=== PATIENT | female | born 1960 | race Caucasian/White ===

== ENCOUNTER → 2020-11-17 10:31 | Outpatient (BNVA) | payer MEDICARE, MEDICAID, SELFPAY | PROVIDERS: Family Provider Family Medicine; PCP Family Medicine Adult Medicine; Visit Provider Family Medicine Adult Medicine | DX: J44.9 Chronic obstructive pulmonary disease, unspecified (principal); F41.9 Anxiety disorder, unspecified; F32.9 Major depressive disorder, single episode, unspecified; M81.8 Other osteoporosis without current pathological fracture; E66.9 Obesity, unspecified; M81.0 Age-related osteoporosis without current pathological fracture; K21.9 Gastro-esophageal reflux disease without esophagitis; E87.6 Hypokalemia; M79.7 Fibromyalgia; M54.5 Low back pain; G89.29 Other chronic pain; Z13.6 Encounter for screening for cardiovascular disorders | CPT/HCPCS: 80053; 80061; 83036; 84443; 85025 ==

== ENCOUNTER 2021-01-03 14:12 | Outpatient (CLI) | payer MEDICARE, MEDICAID, SELFPAY ==
--- NOTE | 2021-01-03 14:30 | MM_ITS ---
WS: [email or web address] BILATERAL SCREENING DIGITAL MAMMOGRAM WITH CAD HISTORY: Screening evaluation. COMPARISON: None available. Bilateral CC and MLO views submitted. Computer aided detection analyzed. Breast composition: The breasts are heterogeneously dense, which may obscure small masses. No suspici ous masses, microcalcifications or architectural distortion. MM/[place] [id number] IMPRESSION: BI-RADS: 1-Negative FOLLOW UP: 1 Year Follow-up
== END 2021-01-03 14:13 | disposition home or self-care (01) ==
LOC: RADSHAW 14:15
PROVIDERS: PCP Family Medicine Adult Medicine; Visit Provider Family Medicine Adult Medicine
DX: Z12.31 Encounter for screening mammogram for malignant neoplasm of breast (principal)
CPT/HCPCS: 77067

== ENCOUNTER 2022-02-22 10:39 | Outpatient (CLI) | payer MEDICARE, MEDICAID, SELFPAY ==
--- NOTE | 2022-02-22 10:51 | MM_ITS ---
WS: [email or web address] BILATERAL SCREENING DIGITAL TOMOSYNTHESIS MAMMOGRAM WITH CAD HISTORY: Breast cancer screening. Last screening done 12/2020 COMPARISON: 01/03/2021 and 09/15/2013 Bilateral CC and MLO views with tomosynthesis and synthetic mammography submitted. Computer aided det ection analyzed. Breast composition: The breasts are heterogeneously dense, which may obscure small masses. No suspici ous masses, microcalcifications or architectural distortion. Benign calcifications in each breast. MM/[place] [id number] IMPRESSION: BI-RADS: 2-Benign FOLLOW UP: 1 Year Follow-up
== END 2022-02-22 10:40 | disposition home or self-care (01) ==
LOC: RAD 10:40
PROVIDERS: PCP Family Medicine Adult Medicine; Visit Provider Family Medicine Adult Medicine
DX: Z12.31 Encounter for screening mammogram for malignant neoplasm of breast (principal)
CPT/HCPCS: 77063; 77067

== ENCOUNTER → 2023-10-02 14:00 | Outpatient (BNVA) | payer MEDICARE, MEDICAID, SELFPAY | PROVIDERS: PCP Family Medicine Adult Medicine; Visit Provider Orthopaedic Surgery | DX: M54.50 Low back pain, unspecified (principal); Z98.1 Arthrodesis status; Z79.899 Other long term (current) drug therapy | CPT/HCPCS: 36415; 72110; 80053; 81001; 85025; 99204 ==

== ENCOUNTER → 2023-10-17 13:20 | Outpatient (BNVA) | payer MEDICARE, MEDICAID, SELFPAY | PROVIDERS: PCP Family Medicine Adult Medicine; Visit Provider Family Medicine | DX: Z01.818 Encounter for other preprocedural examination (principal) | CPT/HCPCS: 81003 ==

== ENCOUNTER 2023-11-09 09:48 | Day surgery (SDC) | payer MEDICARE, MEDICAID, SELFPAY ==
[2023-11-09] VITALS (10 sets, daily range): BP systolic 111–147; BP diastolic 50–84; PULSE 66–96; RESP 14–20; TEMP 36.3–37.5; O2SAT 93–100; BMI 30.4
[2023-11-09] MEDS: sodium chloride 0.9% 1,000 ML 30 ML IV (10:43)
--- NOTE | 2023-11-09 10:45 | P.ANESASSM_ITS ---
Pre-Anesthetic Assessment Height/Weight: Height 1.73 m Weight 90.718 kg Temp Pulse Resp BP Pulse Ox O2 Del Method 97.7 F 87 18 129/79 95 Room Air 11/09/23 10:11/09/23 10:11/09/23 10:00 11/09/23 10:00 11/09/23 10:00 11/09/23 10:15 Preop Diagnosis: Lumbar stenosis with neurogenic claudication Operation Date: 11/09/23 11:20 Proposed Procedures p Spinal Cord Battery/Stimulator Removal Removal Of Stimulator Paddle and Generator(Not Applicable) - Meño Coyne, DO Was Beta Lloyd taken within 24 hours: N/A Last intake: Intake Last Liquid Date 11/08/23 Last Liquid Time 23:00 Last Solid Date 11/08/23 Last Solid Time 19:00 Social No alcohol and No tobacco Exam alert, oriented x 3, clear to auscultation bilaterally and regular rate & rhythm Airway Submandibular: within normal limits Cervical ROM: within normal limits Mallampati: Class II Pulmonary Asthma and Chronic Obstructive Pulmonary Disease GI Gastroesophageal Reflux Disease (controlled) Neuropsych Anxiety and Depression Anesthetic Plan ASA status: 2 Anesthesia: General Medications/Allergies Home Medications Medication Instructions Recorded Confirmed Last Taken Type calcium carbonate 500 mg PO DAILY 02/16/21 11/09/23 11/08/23 History loratadine 10 mg tablet 10 mg PO DAILY allergies #30 tabs 02/14/23 11/09/23 11/08/23 Rx naproxen 500 mg tablet 500 mg PO BID hip pain #30 tabs 05/16/23 11/09/23 11/08/23 Rx albuterol sulfate 90 mcg/actuation 2 puff inhalation Q6H PRN 07/29/23 11/09/23 11/07/23 Rx aerosol inhaler shortness of breath or wheezing #8.5 grams Prempro 0.3 mg-1.5 mg tablet (conj 1 tab PO DAILY hot flashes #28 tabs 09/19/23 11/09/23 11/08/23 Rx estrog-medroxyprogest roseann) cholecalciferol (vitamin D3) 250 2,000 unit PO DAILY 09/19/23 11/09/23 11/08/23 History mcg (10,000 unit) capsule biotin 5,000 mcg chewable tablet 5,000 mcg PO DAILY 10/17/23 11/09/23 11/08/23 History cyanocobalamin (vitamin B-12) 2,500 mcg PO DAILY 10/17/23 11/09/23 11/08/23 History 2,500 mcg chewable tablet ferrous sulfate 325 mg (65 mg 325 mg PO DAILY 10/17/23 11/09/23 11/08/23 History iron) tablet (FeroSul) vit B comp-E 30 unit-folic acid 1 tab PO DAILY 10/17/23 11/09/23 11/08/23 History 400 frg-[id number] 80 mg tablet (Menopause Support) vitamin E (dl, acetate) 180 mg 180 mg PO DAILY 10/17/23 11/09/23 11/08/23 History (400 unit) capsule alendronate 10 mg tablet 10 mg PO DAILY 11/08/23 11/09/23 11/08/23 History buspirone 5 mg tablet 5 mg PO BID 11/08/23 11/09/23 11/08/23 History duloxetine 30 mg capsule,delayed 30 mg PO DAILY 11/08/23 11/09/23 11/08/23 History release duloxetine 60 mg capsule,delayed 60 mg PO DAILY 11/08/23 11/09/23 11/08/23 History release montelukast 10 mg tablet 10 mg PO DAILY 11/08/23 11/09/23 11/08/23 History olanzapine 15 mg tablet 15 mg PO DAILY 11/08/23 11/09/23 11/08/23 History omeprazole 20 mg capsule,delayed 20 mg PO DAILY 11/08/23 11/09/23 11/08/23 History release potassium chloride 10 mEq 10 meq PO DAILY 11/08/23 11/09/23 11/08/23 History capsule,extended release tizanidine 4 mg tablet 4 mg PO TID PRN Spasms 11/08/23 11/09/23 11/08/23 History Allergies Allergy/AdvReac Type Severity Reaction Status Date / Time Penicillins Allergy Mild ALGY-Hives Verified 11/09/23 10:05 Current Medications Generic Name Dose Route Start Last Admin Trade Name Freq PRN Reason Stop Dose Admin Sodium Chloride 1,000 mls @ 30 mls/hr 11/09/23 10:00 11/09/23 10:43 Sodium Chloride 0.9% IV 11/10/23 09:59 30 mls/hr .Q24H JOSE Administration PFSH Anesthesia Medical History Spinal cord stimulator dysfunction Hot flash, menopausal Allergic rhinitis due to allergen Skin abnormalities Psoriasis/like disorders Arthritis of left sacroiliac joint Pain around toenail, right foot Enlarged and hypertrophic nails Chronic bronchitis with COPD (chronic obstructive pulmonary disease) Obesity (BMI 30.0-34.9) Anxiety and depression Asthma due to environmental allergies Chronic low back pain Vitamin D deficiency Osteoporosis Hyperlipidemia Fibromyalgia GERD (gastroesophageal reflux disease) Surgical History History of back surgery History of shoulder surgery left History of hysterectomy History of neck surgery History of hand surgery bilateral carpal tunnel Family History Family/Other Diabetes Maternal aunt Denies family history of CAD (coronary artery disease) Clotting disorder Dementia Hyperlipidemia Chronic kidney disease (CKD) Anesthesia complication Bleeding disorder Lung disease Cancer Hypertension Stroke Social History Smoking and tobacco/nicotine status: never used tobacco/nicotine Alcohol intake: former Substance/Drug Use: never Adopted: No Caregiver/support person: No Lives independently: Yes Household members: family Marital status: Number of children: 2 Number of grandchildren: 1 Highest education level completed: 11th Grade service: No Current occupational status: disabled Pets and animals: Yes Pets & animals: dog(s) Do you think of yourself as: Straight/Heterosexual Current gender identity: Female Hodan/Yarsanism: None Special hodan needs: No Data Anesthesia Cardiac Studies: No Data to Display
--- NOTE | 2023-11-09 12:02 | W.PM.OPSUD ---
Surgery/Procedure H&P Update DATE OF PROCEDURE: November 09, 2023 DATE H&P PERFORMED: 10/17/23 H&P UPDATE INFORMATION: I have reviewed H&P completed within last 30 days, I have examined patient prior to procedure and No changes to prior documentation PREOP DIAGNOSIS: Lumbar stenosis with neurogenic claudication PLANNED PROCEDURE: Operation Date: 11/09/23 11:20 Proposed Procedures p Spinal Cord Battery/Stimulator Removal Removal Of Stimulator Paddle and Generator(Not Applicable) - Meño Coyne DO
[2023-11-09] MEDS: clindamycin 900 MG/50 ML PREMIX 100 MG IV (12:11)
[2023-11-09] MEDS: lidocaine-epi 1% 20 mL INJ 10 ML INJECTION (12:31)
[2023-11-09] MEDS: vancomycin 1,000 MG SDV 1000 MG XX (12:51)
--- NOTE | 2023-11-09 13:01 | SUR.OPER ---
1300 battery removed and inspected by dr duarte, removed entirely and placed in biohazard
--- NOTE | 2023-11-09 13:21 | PM.OP ---
Operative Report Date of procedure: November 09, 2023 Pre-op diagnosis: Lumbar stenosis with neurogenic claudication Post-op diagnosis: same Procedure done: 1. Removal of spinal cord stimulator that was percutaneous 2. Removal of battery generator for neurostimulator Surgeon: Meño Coyne DO Estimated blood loss (mL): 5 Procedure: 1. Removal of spinal cord stimulator that was percutaneous 2. Removal of battery generator for neurostimulator Patient brought to the operative suite after going anesthesia placed in the prone position. All his impingement well-padded. Patient's prepped draped also fashion. Skin incision made over the battery first the battery is identified and removed from the battery pocket. Extension was brought to where the stimulator is tight in. Incisions made over the 2 tines for stimulator. These were identified sutures were cut. And the percutaneous leads were pulled from the spine. Next the wires for the battery were cut and then these were pulled through. X-rays then taken to confirm that all of the hardware and wires were taken out. Wounds were irrigated vancomycin powder was placed and wound was closed with Vicryl and Monocryl suture. Sterile dressings were applied patient was transferred to the PACU in stable condition.
--- NOTE | 2023-11-09 13:28 | ANE.PACU2 ---
Inpatient post-anesthesia follow up: Airway intact: Yes Vital signs: Temperature 97.7 F Pulse Rate 87 Respiratory Rate 18 Blood Pressure 129/79 Pulse Oximetry 95 Oxygen Delivery Me thod Room Air Oxygen Flow Rate Fraction of Inspir ed Oxygen Hydration adequate: Yes Nausea and vomiting: No Pain level: controlled Mental status: Baseline (appropriate for stage of anesthesia)
[2023-11-09] MEDS: HYDROcodone-acetaminophen 5-325 mg Tablet 1 TAB PO (14:18)
--- NOTE | 2023-11-09 14:22 | XR_ITS ---
WS: [email or web address] C-ARM RADIOGRAPHS LUMBAR SPINE; 4 IMAGES HISTORY: or pic, spinal stimulator removal COMPARISON: None available. Intraoperative imaging during spinal stimulator removal. On the imaging submitted no stimulator is id entified. XR/XR lumbar spine 1V [id number] IMPRESSION: Intraoperative imaging during spinal stimulator removal.
== END 2023-11-09 14:30 | disposition home or self-care (01) ==
PROVIDERS: PCP Family Medicine Adult Medicine; Visit Provider Orthopaedic Surgery
PROC: (CPT 63661; principal; 2023-11-09 11:10)
DX: M48.062 Spinal stenosis, lumbar region with neurogenic claudication (principal); J44.9 Chronic obstructive pulmonary disease, unspecified; K21.9 Gastro-esophageal reflux disease without esophagitis; E66.9 Obesity, unspecified; Z68.30 Body mass index [BMI] 30.0-30.9, adult; M81.0 Age-related osteoporosis without current pathological fracture; E78.5 Hyperlipidemia, unspecified; M79.7 Fibromyalgia
CPT/HCPCS: 63661; 63688; 72020; 76000; J0330; J1100; J2405; J2704; J2710; J3010; J3370; J3490; J7030

== ENCOUNTER → 2023-11-27 13:45 | Outpatient (BNVA) | payer MEDICARE, MEDICAID, SELFPAY | PROVIDERS: PCP Family Medicine Adult Medicine; Visit Provider Orthopaedic Surgery | DX: G89.29 Other chronic pain; M54.50 Low back pain, unspecified | CPT/HCPCS: 99024 ==

== ENCOUNTER 2023-12-14 09:17 | Outpatient (CLI) | payer MEDICARE, MEDICAID, SELFPAY ==
--- NOTE | 2023-12-14 09:30 | MR_ITS ---
WS: [email or web address] MRI LUMBAR SPINE NONCONTRAST TECHNIQUE: Sagittal T1, T2 and STIR imaging. Axial T1 and T2 imaging. CLINICAL INFORMATION: Back Pain COMPARISON: None. FINDINGS: Prior postoperative changes pedicle screw fixation L5-S1 with laminectomy defects. No high-grade cent ral canal stenosis. Compression with anterior wedging wedging in the thoracic spine at T4 and T6, wor se at T6. L1-L2: Tiny RIGHT paracentral protrusion. Spinal canal and foramen are patent. Mild facet arthropathy . L2-L3: Mild annular bulging. Moderate facet arthropathy. Mild LEFT foraminal narrowing. L3-L4: Slight retrolisthesis. Mild annular bulging. Mild central canal stenosis. Mild facet arthropat hy. L4-L5: Mild annular bulging. Mild facet arthropathy. Spinal canal and foramen are patent. L5-S1: Pedicle screw fixation with interbody fusion graft. Spinal canal and foramen are patent. Steffen ectomy defects. Visualized pelvic bony structures: Normal. Paravertebral soft tissues: Normal. Small LEFT renal cyst. Incidental Tarlov cyst in the sacrum. MR/MR lumbar spine wo con* [id number] IMPRESSION: 1. Mild lumbar curve. No acute compression. 2. Pedicle screw fixation L5-S1.Laminectomy defects in the lower lumbar spine. 3. Mild central canal stenosis L3-4. This is progressed compared to previous. 4. Mild annular bulging L2-3 with slight narrowing LEFT subarticular recess wi th mild LEFT foraminal narrowing. This appears progressed compared to previous. 5. Anterior wedging in the midthoracic spine at T4 and T6 worse at T6 with vis ualized fracture clefts. This could be further evaluated thoracic spine MRI.
== END 2023-12-14 09:18 | disposition home or self-care (01) ==
LOC: RAD 09:18
PROVIDERS: PCP Family Medicine Adult Medicine; Visit Provider Orthopaedic Surgery
DX: S22.040A Wedge compression fracture of fourth thoracic vertebra, initial encounter for closed fracture (principal); X58.XXXA Exposure to other specified factors, initial encounter
CPT/HCPCS: 72148

== ENCOUNTER → 2023-12-18 13:08 | Outpatient (BNVA) | payer MEDICARE, MEDICAID, SELFPAY | PROVIDERS: PCP Family Medicine Adult Medicine; Visit Provider Orthopaedic Surgery | DX: Z09 Encounter for follow-up examination after completed treatment for conditions other than malignant neoplasm (principal) | CPT/HCPCS: 99024 ==

== ENCOUNTER → 2024-01-22 15:42 | Outpatient (BNVA) | payer MEDICARE, MEDICAID, SELFPAY | PROVIDERS: PCP Family Medicine Adult Medicine; Visit Provider Orthopaedic Surgery | DX: G89.29 Other chronic pain (principal); Z48.89 Encounter for other specified surgical aftercare | CPT/HCPCS: 72110; 99024 ==

== ENCOUNTER 2024-03-20 08:59 | Outpatient (CLI) | payer MEDICARE, MEDICAID, SELFPAY ==
--- NOTE | 2024-03-20 09:00 | CT_ITS ---
WS: [email or web address] LDCT LUNG CANCER SCREENING HISTORY: karmen dep in remission; quit 2019; 40pk yr hx TECHNIQUE: Axial imaging performed from the apices to 1 cm below the costophrenic angles. Coronal and sagittal reformats are submitted with axial MIP series. All CT scans at [facility] use at least one of these dose optimization techniques: automated exposure control; mA and/or kV adjustment per patient size (includes targeted exams where dose is matched to clinical indication); or iterativ e reconstruction. DLP: 83.80 mGy.cm DIvol: Mean CTDIvol: 1.90 (mGy) COMPARISON: None available. Diagnostic quality: Satisfactory Lungs: Pulmonary hyperexpansion. 2 mm nodule periphery RIGHT upper lobe. 4 mm LEFT perifissural nodul e. No additional masses or nodules. No pneumonia. No endobronchial lesions. Heart: Normal size heart with no pericardial effusion.. Other findings: Small mediastinal and hilar lymph nodes. Minimal atherosclerosis aorta. Mild anterior wedging of T6 and T4. CT/CT lung screening [id number] IMPRESSION: LUNG-RADS: 2-Benign Appearance or Behavior FOLLOW UP: 12 Month: Continue annual screening with LDCT OTHER FINDINGS (S MODIFIER): None.
== END 2024-03-20 09:00 | disposition home or self-care (01) ==
LOC: RAD 08:59
PROVIDERS: PCP Family Medicine Adult Medicine; Visit Provider Family Medicine
DX: Z12.2 Encounter for screening for malignant neoplasm of respiratory organs (principal); F17.211 Nicotine dependence, cigarettes, in remission; J98.4 Other disorders of lung; R91.8 Other nonspecific abnormal finding of lung field; I70.0 Atherosclerosis of aorta; M48.54XA Collapsed vertebra, not elsewhere classified, thoracic region, initial encounter for fracture; R59.0 Localized enlarged lymph nodes
CPT/HCPCS: 71271

== ENCOUNTER 2024-04-03 11:20 | Outpatient (CLI) | payer MEDICARE, MEDICAID, SELFPAY ==
--- NOTE | 2024-04-03 11:20 | MM_ITS ---
WS: [email or web address] SCREENING DIGITAL BREAST TOMOSYNTHESIS MAMMOGRAM WITH CAD HISTORY: screening COMPARISON: 02/22/2022, 01/03/2021 Bilateral CC and MLO with tomosynthesis and synthetic mammography submitted. Computer aided detection analyzed. Breast composition: The breasts are heterogeneously dense, which may obscure small masses. New high d ensity mass measures 9 x 10 x 9 mm retroareolar region. Margins of the mass are partially obscured. N o calcification. No additional suspicious findings. MM/MM scr BI tomosynthesis [id number] IMPRESSION: BI-RADS: 0 - Incomplete: Need additional imaging evaluation FOLLOW UP: Need Additional Imaging LEFT breast: Spot compression views (CC and MLO). True ML. Ultrasound to follow if abnormality persists. Repeat LEFT MLO image to include more of the axillary tail and axilla.
== END 2024-04-03 11:21 | disposition home or self-care (01) ==
LOC: MOBLMAM 11:22
PROVIDERS: PCP Family Medicine; Visit Provider Family Medicine
DX: Z12.31 Encounter for screening mammogram for malignant neoplasm of breast (principal); R92.333 Mammographic heterogeneous density, bilateral breasts; N63.0 Unspecified lump in unspecified breast; R92.8 Other abnormal and inconclusive findings on diagnostic imaging of breast
CPT/HCPCS: 77063; 77067

== ENCOUNTER 2024-04-18 08:30 | Outpatient (CLI) | payer MEDICARE, MEDICAID, SELFPAY ==
--- NOTE | 2024-04-18 08:43 | MR_ITS ---
WS: [email or web address] MRI LUMBAR SPINE NONCONTRAST TECHNIQUE: Sagittal T1, T2 and STIR imaging. Axial T1 and T2 imaging. CLINICAL INFORMATION: CHRONIC LOW BACK PAIN COMPARISON: MRI 12/14/2023 FINDINGS: Prior postoperative changes pedicle screw fixation L5-S1 with laminectomy defects. No high-grade central canal stenosis. Compression with anterior wedging wedging in the thoracic spine at T4 and T6, worse at T6. Spinal stimulator removal. L1-L2: Slight narrowing of the RIGHT subarticular recess. Slight retrolisthesis. Mild narrowing of the RIGHT subarticular recess. Mild facet arthropathy. Spinal canal and foramen are patent. L2-L3: Slight retrolisthesis. Mild annular bulging. Slight narrowing of the LEFT subarticular recess. Mild LEFT foraminal narrowing. Mild facet arthropathy. L3-L4: Slight retrolisthesis. Mild annular bulging. Mild central canal stenosis. Impingement traversing L4 nerve roots. Mild facet arthropathy. Foramen are patent. L4-L5: Mild annular bulging. Narrowing of the subarticular recess bilaterally appears slightly progressed. Foramen are patent. L5-S1: Pedicle screw fixation L5-S1 with interbody fusion. Spinal canal and foramen are patent. Visualized pelvic bony structures: Normal. Paravertebral soft tissues: Normal. MR/MR lumbar spine wo con* [id number] IMPRESSION: 1. Prior postoperative changes pedicle screw fixation L5-S1 with interbody fus ion. 2. Mild central canal stenosis L3-4 with impingement of the subarticular reces s bilaterally similar to previous. 3. Narrowing of the subarticular recess bilaterally at L4-5 appears slightly p rogressed. 4. Disc bulging L2-3 with slight narrowing the LEFT subarticular recess and mi ld LEFT foraminal narrowing appears stable. 5. Tiny RIGHT paracentral protrusion L1-2 with slight narrowing of the RIGHT s ubarticular recess. 6. Evidence of prior spinal stimulator removal
== END 2024-04-18 08:31 | disposition home or self-care (01) ==
LOC: RAD 08:33
PROVIDERS: PCP Family Medicine; Visit Provider Nurse Practitioner Adult Health
DX: M47.816 Spondylosis without myelopathy or radiculopathy, lumbar region (principal); Z98.1 Arthrodesis status; M48.061 Spinal stenosis, lumbar region without neurogenic claudication; M51.369 Other intervertebral disc degeneration, lumbar region without mention of lumbar back pain or lower extremity pain; M96.89 Other intraoperative and postprocedural complications and disorders of the musculoskeletal system; M48.54XA Collapsed vertebra, not elsewhere classified, thoracic region, initial encounter for fracture; R93.7 Abnormal findings on diagnostic imaging of other parts of musculoskeletal system; M47.896 Other spondylosis, lumbar region
CPT/HCPCS: 72148

== ENCOUNTER 2024-04-21 08:27 | Outpatient (CLI) | payer MEDICARE, MEDICAID, SELFPAY ==
--- NOTE | 2024-04-21 08:30 | MM_ITS ---
WS: [email or web address] ADDITIONAL VIEWS LEFT MAMMOGRAM with tomosynthesis. LEFT BREAST ULTRASOUND HISTORY: left breast mass on mammo COMPARISON: 04/03/2024, 02/22/2022 LEFT MAMMOGRAM: Spot compression views and true ML with tomosynthesis and synthetic mammography. Partially obscured mass of increased density in the lateral LEFT breast near 3:00 measures 9 x 10 x 10 mm. Margins are partially obscured but otherwise smooth. No additional mass. LEFT BREAST ULTRASOUND 2-D and color Doppler imaging submitted. Lobulated cyst with through transmission and no internal echoes is identified at 4:00, 1 cm from the nipple. Mass measures one-point 1.3 x 1.2 x 0.9 cm. MM/MM diag LT tomosynthesis [id number] IMPRESSION: BI-RADS: 2 - Benign FOLLOW UP: 1 Year Follow-up New mass seen on mammography is a simple cyst noted by ultrasound.
--- NOTE | 2024-04-21 09:00 | US_ITS ---
WS: [email or web address] ADDITIONAL VIEWS LEFT MAMMOGRAM with tomosynthesis. LEFT BREAST ULTRASOUND HISTORY: left breast mass on mammo COMPARISON: 04/03/2024, 02/22/2022 LEFT MAMMOGRAM: Spot compression views and true ML with tomosynthesis and synthetic mammography. Partially obscured mass of increased density in the lateral LEFT breast near 3:00 measures 9 x 10 x 10 mm. Margins are partially obscured but otherwise smooth. No additional mass. LEFT BREAST ULTRASOUND 2-D and color Doppler imaging submitted. Lobulated cyst with through transmission and no internal echoes is identified at 4:00, 1 cm from the nipple. Mass measures one-point 1.3 x 1.2 x 0.9 cm. US/US breast LT complete [id number] IMPRESSION: BI-RADS: 2 - Benign FOLLOW UP: 1 Year Follow-up New mass seen on mammography is a simple cyst noted by ultrasound.
== END 2024-04-21 08:28 | disposition home or self-care (01) ==
LOC: RAD 08:29
PROVIDERS: PCP Family Medicine; Visit Provider Family Medicine
DX: N63.25 Unspecified lump in the left breast, overlapping quadrants (principal)
CPT/HCPCS: 76641; 77061; G0279

== ENCOUNTER → 2024-09-08 13:40 | Outpatient (BNVA) | payer MEDICARE, MEDICAID, SELFPAY | PROVIDERS: PCP Family Medicine; Visit Provider Family Medicine | DX: Z12.39 Encounter for other screening for malignant neoplasm of breast (principal); F17.211 Nicotine dependence, cigarettes, in remission; Z11.59 Encounter for screening for other viral diseases; R63.4 Abnormal weight loss; Z78.9 Other specified health status; M81.8 Other osteoporosis without current pathological fracture; E78.2 Mixed hyperlipidemia; E66.9 Obesity, unspecified; K90.9 Intestinal malabsorption, unspecified; G89.29 Other chronic pain; R03.0 Elevated blood-pressure reading, without diagnosis of hypertension; G24.01 Drug induced subacute dyskinesia | CPT/HCPCS: 80053; 80061; 82306; 82310; 83690; 83970; 84439; 84443; 85025; 86803; 87806 ==

== ENCOUNTER 2024-09-16 09:59 | Outpatient (CLI) | payer MEDICARE, MEDICAID, SELFPAY ==
--- NOTE | 2024-09-16 11:00 | CTR_ITS ---
PROCEDURE INFORMATION: Exam: CT Abdomen And Pelvis With Contrast Exam date and time: 09/16/2024 11:03 AM Age: 63 years old Clinical indication: Prior surgery; Surgery date: 6+ months; Surgery type: Back, hyst; 40lb weight loss in 6 months, constipation, llq pain on Sunday; Additional info: 40 pound weight loss in 6 months; Unexplained TECHNIQUE: Imaging protocol: Computed tomography of the abdomen and pelvis with contrast. Radiation optimization: All CT scans at this facility use at least one of these dose optimization techniques: automated exposure control; mA and/or kV adjustment per patient size (includes targeted exams where dose is matched to clinical indication); or iterative reconstruction. Contrast material: OMNI 350; Contrast volume: 100 ml; Contrast route: INTRAVENOUS (IV); COMPARISON: CR XR hip LT 2-3V wo/w pel* [id number] 02/22/2018 10:31 AM RADIATION DOSE METRICS: Total DLP (mGy-cm): 389.21 FINDINGS: Liver: There is a 1 cm low-density lesion with peripheral enhancement within the caudal aspect of the right lobe of the liver Gallbladder and biliary ducts: Normal. No calcified stones. No ductal dilation. Pancreas: Normal. No ductal dilation. Spleen: There are calcified splenic granulomas. No splenomegaly. Adrenal glands: Normal. No mass. Kidneys and ureters: There is a partially septated cystic lesion arising from the lower pole of the left kidney which measures 1.8 cm with subtle increased attenuation material within the caudal portion of the lesion. There are additional well-circumscribed low-density left renal lesions, suggestive of simple cysts. No hydronephrosis. Stomach and bowel: There is xbgb-uw-xgeasolj retained fecal material throughout the colon. No evidence of bowel obstruction. There is colonic diverticulosis without acute diverticulitis. Appendix: No evidence of appendicitis. Intraperitoneal space: Unremarkable. No free air. No significant fluid collection. Vasculature: Mild atherosclerotic vascular calcifications. No abdominal aortic aneurysm. Lymph nodes: Unremarkable. No enlarged lymph nodes. Urinary bladder: Unremarkable as visualized. Reproductive: The uterus is absent. Bones/joints: There are postoperative changes of posterior spinal fixation at L4-L5. There is a mild chronic compression deformity of the superior endplate of L3. A small sclerotic density is noted within the posterior L1 vertebral body, suspicious for a bone island. No acute fractures. Soft tissues: Unremarkable. CT/CT abdomen pelvis w con* [id number] IMPRESSION: 1. Mildly complex cystic lesion arising from the lower pole of the left kidney. Follow-up MRI of the abdomen with and without contrast is suggested for further evaluation. 2. Small low-density lesion with mild peripheral nodular enhancement within the right lobe of the liver which may reflect a cavernous hemangioma however is too small to adequately characterize. Correlation with MRI could be obtained for further evaluation 3. No acute abnormality COMMENTS: Consistent with the [employer]'s Incidental Findings Committee white paper (J Am Jono Radiol 2018): Any incidental renal lesion less than 1 cm or classified as too small to characterize, or any incidental cystic renal lesion characterized as simple-appearing, is likely benign. No follow-up imaging is recommended for these lesions per consensus recommendations based on imaging criteria.
[2024-09-16] MEDS: iohexol 350 mg/mL 500 mL Btl (per mL) PO (11:04)
[2024-09-16] MEDS: iohexol 350 mg/mL 500 mL Btl (per mL) IV (11:06)
== END 2024-09-16 10:00 | disposition home or self-care (01) ==
LOC: RAD 10:00
PROVIDERS: PCP Family Medicine; Visit Provider Family Medicine
DX: R63.4 Abnormal weight loss (principal); K76.9 Liver disease, unspecified; D73.89 Other diseases of spleen; N28.1 Cyst of kidney, acquired; K56.41 Fecal impaction; K57.30 Diverticulosis of large intestine without perforation or abscess without bleeding; R93.1 Abnormal findings on diagnostic imaging of heart and coronary circulation; R93.7 Abnormal findings on diagnostic imaging of other parts of musculoskeletal system; M89.9 Disorder of bone, unspecified; S32.030D Wedge compression fracture of third lumbar vertebra, subsequent encounter for fracture with routine healing; X58.XXXD Exposure to other specified factors, subsequent encounter
CPT/HCPCS: 74177

== ENCOUNTER 2024-09-29 11:56 | Outpatient (CLI) | payer MEDICARE, MEDICAID, SELFPAY ==
--- NOTE | 2024-09-29 11:45 | MR_ITS ---
WS: [email or web address] MRI/MRCP OF THE ABDOMEN WITHOUT GADOLINIUM ENHANCEMENT TECHNIQUE: Coronal T2 Fase BH, Axial T2 Fase BH, Axial T2 FS BH, Zxial 3D Arizmendi BH, Axial DWI BH, 2D MRCP Radial BH, 3D MRCP (Resp), and Axial 3D Dyn BH Post sequences. CLINICAL INFORMATION: abnormal weight loss; CT shows L renal cyst and liver lesion COMPARISON: CT 09/16/2024 FINDINGS: Small LEFT renal cyst measuring 8 mm. Additional 10 mm cyst along the inferior LEFT kidney. A few additional additional tiny subcentimeter cysts LEFT kidney. No hydronephrosis in either kidney. Incidental cavernous hemangioma undersurface RIGHT hepatic lobe measuring 10 mm. Adrenal glands are normal. Normal portal vein and splenic vein. Normal pancreas. Small esophageal hernia. Adrenal glands are normal. Normal splenic enhancement. Normal caliber upper abdominal aorta. Celiac and SMA are patent. MR/MR abdomen wo/w con* [id number] Impression: 1. Small LEFT renal cysts 8 mm and 10 mm 2. Cavernous hemangioma undersurface RIGHT hepatic lobe measuring 10 mm 3. No other acute findings
[2024-09-29] MEDS: gadobenate dimeglumine 20 mL vial 15 ML IV (12:26)
== END 2024-09-29 11:57 | disposition home or self-care (01) ==
LOC: RAD 11:56
PROVIDERS: PCP Family Medicine; Visit Provider Family Medicine
DX: R63.4 Abnormal weight loss (principal); R16.0 Hepatomegaly, not elsewhere classified; N28.1 Cyst of kidney, acquired; D18.09 Hemangioma of other sites
CPT/HCPCS: 74183

== ENCOUNTER 2024-10-10 05:00 | Outpatient (RCR) | payer OTHER, MEDICAID, SELFPAY | END 2024-11-09 23:59 | disposition home or self-care (01) | LOC: SPT 05:00 | PROVIDERS: PCP Family Medicine; Visit Provider Family Medicine | DX: R26.81 Unsteadiness on feet (principal); R26.89 Other abnormalities of gait and mobility | CPT/HCPCS: 97110; 97162 ==

== ENCOUNTER 2024-10-16 15:01 | Outpatient (CLI) | payer MEDICARE, SELFPAY ==
--- NOTE | 2024-10-16 15:12 | XRR_ITS ---
PROCEDURE INFORMATION: Exam: XR Cervical Spine Exam date and time: 10/16/2024 3:18 PM Age: 64 years old Clinical indication: Other: Headaches; Prior surgery; Surgery date: 6+ months; Surgery type: Cadaver bone in cervical spine; Additional info: Chronic neck pain TECHNIQUE: Imaging protocol: Radiologic exam of the cervical spine. Views: 2 or 3 views. COMPARISON: CT lung screening [id number] 03/20/2024 9:31 AM FINDINGS: Bones/joints: Vvfp-[id number]-tpmpsnux bony degenerative changes. Postsurgical changes of C5-C6. Odontoid midline. No acute fracture. Normal alignment. Soft tissues: Unremarkable. Other: Edentulous patient. XR/XR cervical spine 3V* [id number] IMPRESSION: No acute findings. Gjal-pr-xqwstbqa bony degenerative changes. Postsurgical changes of C5-C6
== END 2024-10-16 15:02 | disposition home or self-care (01) ==
PROVIDERS: PCP Family Medicine; Visit Provider Family Medicine
DX: M54.2 Cervicalgia (principal); Z98.890 Other specified postprocedural states; G31.89 Other specified degenerative diseases of nervous system
CPT/HCPCS: 72040

== ENCOUNTER 2024-10-22 10:29 | Outpatient (CLI) | payer OTHER, MEDICAID, SELFPAY ==
--- NOTE | 2024-10-22 10:30 | CT_ITS ---
WS: [email or web address] CT HEAD TECHNIQUE: Noncontrast CT of the head obtained from the skullbase to the vertex. CLINICAL INFORMATION: headaches X 2 months; balance problems COMPARISON: MRI 2017 DLP: 1066.[address] scans at [facility] use at least one of these dose optimization techniques: automated exposure control; mA and/or kV adjustment per patient size (includes targeted exams where dose is matched to clinical indication); or iterative reconstruction. FINDINGS: No evidence of intracranial hemorrhage or mass effect. Ventricular system and basal cisterns are patent. Mild small vessel changes with mild parenchymal volume loss. No extra-axial fluid collections. No evidence of mass or mass effect. Vascular calcification Mastoid air cells are well aerated. Paranasal sinusitis with opacification of the ethmoid air cells and secretions in the sphenoid sinus. CT/CT head wo con* [id number] IMPRESSION: 1. No evidence of intracranial hemorrhage or mass effect. 2. Mild small vessel changes. Mild parenchymal volume loss. 3. Vascular calcification. 4. Paranasal sinusitis with opacification of the ethmoid air cells with secret ions in the sphenoid sinus.
== END 2024-10-22 10:30 | disposition home or self-care (01) ==
LOC: RAD 10:31
PROVIDERS: PCP Family Medicine; Visit Provider Family Medicine
DX: R51.9 Headache, unspecified (principal); R90.82 White matter disease, unspecified; I67.89 Other cerebrovascular disease; J32.2 Chronic ethmoidal sinusitis
CPT/HCPCS: 70450

== ENCOUNTER → 2024-10-27 09:16 | Outpatient (BNVA) | payer OTHER, MEDICAID, SELFPAY | PROVIDERS: PCP Family Medicine; Visit Provider Student in an Organized Health Care Education/Training Program | DX: Z12.11 Encounter for screening for malignant neoplasm of colon (principal) | CPT/HCPCS: 99024; 99204 ==

== ENCOUNTER 2024-11-10 05:00 | Outpatient (RCR) | payer OTHER, MEDICAID, SELFPAY | END 2024-12-09 23:59 | disposition home or self-care (01) | LOC: SPT 05:00 | PROVIDERS: PCP Family Medicine; Visit Provider Family Medicine | DX: R26.89 Other abnormalities of gait and mobility (principal); R26.81 Unsteadiness on feet | CPT/HCPCS: 97110 ==

== ENCOUNTER → 2024-11-11 10:36 | Outpatient (BNVA) | payer OTHER, MEDICAID, SELFPAY | PROVIDERS: PCP Family Medicine; Referring Provider Family Medicine; Visit Provider Anesthesiology Pain Medicine | DX: M54.50 Low back pain, unspecified (principal); G89.29 Other chronic pain; M47.816 Spondylosis without myelopathy or radiculopathy, lumbar region | CPT/HCPCS: 99204 ==

== ENCOUNTER 2024-11-18 12:52 | Emergency (ER) | payer OTHER, MEDICAID, SELFPAY ==
[2024-11-18] VITALS (7 sets, daily range): BP systolic 130–168; BP diastolic 64–110; PULSE 86–92; RESP 16–20; TEMP 36.3; O2SAT 93–100; BMI 24.1
--- OUTSIDE RECORDS SUMMARY | 2024-11-18 12:58 | XMS_ITS | Encounter Summary ---
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 Name Role Phone Unavailable Primary Care Provider Unavailabl e Encounter Details Date Type Department Care Team (Latest Contact Info) Description 01/31/2000 Outpatient [facility] [address] [id number] Cade Eduardo, NO ADDRESS ON FILE Acute bronchitis (Primary Dx); Acute sinusitis, unspecified Social History Tobacco Use Types Packs/Day Years Used Date Smoking Tobacco: Never Assessed Comments Unknown Sex and Gender Information Value Date Recorded Sex Assigned at Not on file Legal Sex Female 5:32 AM [employer] Gender Identity Not on file Sexual Orientation Not on file documented as of this encounter Plan of Treatment Not on file documented as of this encounter Visit Diagnoses Diagnosis Acute bronchitis- Primary Acute sinusitis, unspecified documented in this encounter
--- OUTSIDE RECORDS SUMMARY | 2024-11-18 12:58 | XMS_ITS | Encounter Summary ---
Author Organization [facility] Address [address] [place] [address] Care Team Providers Care Acetylene Gas Compressor Name Role Phone Unavailable Primary Care Provider Unavailabl e Encounter Details Date Type Department Care Team (Latest Contact Info) Description 01/08/1998 Outpatient Historical [facility] Rheumatology- [place] [address] [place] [phone] Myalgia and myositis, unspecified (Primary Dx); Lateral epicondylitis; Spasm of muscle Social History Tobacco Use Types Packs/Day Years Used Date Smoking Tobacco: Never Assessed Comments Unknown Sex and Gender Information Value Date Recorded Sex Assigned at Not on file 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
--- OUTSIDE RECORDS SUMMARY | 2024-11-18 12:58 | XMS_ITS | Encounter Summary ---
Author Organization [facility] Address [address] [place] [address] Care Team Providers Care Purler Name Role Phone Unavailable Primary Care Provider Unavailabl e Encounter Details Date Type Department Care Team (Latest Contact Info) Description 08/10/1999 Outpatient [facility] Medicine [address] [phone] Cade Eduardo, NO ADDRESS ON FILE Temporomandibular joint disorders, unspecified (Primary Dx) Social History Tobacco Use Types Packs/Day Years Used Date Smoking Tobacco: Never Assessed Comments Unknown Sex and Gender Information Value Date Recorded Sex Assigned at Not on file Legal Sex Female 5:32 AM RECENTERER Gender Identity Not on file Sexual Orientation Not on file documented as of this encounter Plan of Treatment Not on file documented as of this encounter Visit Diagnoses Diagnosis Temporomandibular joint disorders, unspecified- Primary documented in this encounter
--- OUTSIDE RECORDS SUMMARY | 2024-11-18 12:58 | XMS_ITS | Encounter Summary ---
Author Organization [facility] Address [address] [place] [address] Care Team Providers Care Immigration Law Specialist Name Role Phone Unavailable Primary Care Provider Unavailabl e Encounter Details Date Type Department Care Team (Latest Contact Info) Description 06/23/1997 Outpatient Historical [facility] Rheumatology- 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
--- OUTSIDE RECORDS SUMMARY | 2024-11-18 12:58 | XMS_ITS | Encounter Summary ---
Author Organization [facility] Address [address] [place] [address] Care Team Providers Care Reports Developer Name Role Phone Unavailable Primary Care Provider Unavailabl e Encounter Details Date Type Department Care Team (Latest Contact Info) Description 01/26/2000 Outpatient Historical [facility] Medicine [place] [address] [facility] [address] [place] [address] Cade Eduardo, DO NO ADDRESS ON FILE Other chronic bronchitis (Primary Dx) Social History Tobacco Use Types Packs/Day Years Used Date Smoking Tobacco: Never Assessed Comments Unknown Sex and Gender Information Value Date Recorded Sex Assigned at Not on file Legal Sex Female 5:32 AM INDUCTION COORDINATION ENGINEER Gender Identity Not on file Sexual Orientation Not on file documented as of this encounter Plan of Treatment Not on file documented as of this encounter Visit Diagnoses Diagnosis Other chronic bronchitis- Primary documented in this encounter
--- OUTSIDE RECORDS SUMMARY | 2024-11-18 12:58 | XMS_ITS | Encounter Summary ---
Author Organization [facility] Address [address] [place] [address] Care Team Providers Care Well Logging Mud Analysis Captain Name Role Phone Unavailable Primary Care Provider Unavailabl e Encounter Details Date Type Department Care Team (Latest Contact Info) Description 11/21/1999 Outpatient [facility] Medicine [address] [place] [address] Cade Eduardo, NO ADDRESS ON FILE Symptomatic menopausal or female climacteric states (Primary Dx); Cardiac dysrhythmia, unspecified Social History Tobacco Use Types Packs/Day Years Used Date Smoking Tobacco: Never Assessed Comments Unknown Sex and Gender Information Value Date Recorded Sex Assigned at Not on file 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
--- OUTSIDE RECORDS SUMMARY | 2024-11-18 12:58 | XMS_ITS | Encounter Summary ---
Author Organization [facility] Address [address] [place] [address] Care Team Providers Care Home Health Nurse Name Role Phone Unavailable Primary Care Provider Unavailabl e Encounter Details Date Type Department Care Team (Latest Contact Info) Description 04/04/2000 Outpatient Historical [facility] Medicine [place] [address] [facility] [address] [place] [address] Cade Eduardo, NO ADDRESS ON FILE Pain in joint, forearm (Primary Dx) Social History Tobacco Use Types Packs/Day Years Used Date Smoking Tobacco: Never Assessed Comments Unknown Sex and Gender Information Value Date Recorded Sex Assigned at Not on file Legal Sex Female 5:32 AM ERGONOMICS ENGINEER Gender Identity Not on file Sexual Orientation Not on file documented as of this encounter Plan of Treatment Not on file documented as of this encounter Visit Diagnoses Diagnosis Pain in joint, forearm- Primary documented in this encounter
--- OUTSIDE RECORDS SUMMARY | 2024-11-18 12:58 | XMS_ITS | Encounter Summary ---
Author Organization [facility] Address [address] [place] [address] Care Team Providers Care Property And Supply Officer Name Role Phone Unavailable Primary Care Provider Unavailabl e Encounter Details Date Type Department Care Team (Latest Contact Info) Description 09/17/1997 Outpatient Historical [facility] Rheumatology- [place] [address] [place] [phone] Myalgia and myositis, unspecified (Primary Dx); Tension headache Social History Tobacco Use Types Packs/Day Years Used Date Smoking Tobacco: Never Assessed Comments Unknown Sex and Gender Information Value Date Recorded Sex Assigned at Not on file 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
--- OUTSIDE RECORDS SUMMARY | 2024-11-18 12:58 | XMS_ITS | Encounter Summary ---
Author Organization [facility] Address [address] [place] [address] Care Team Providers Care Retail Greeting Card Merchandiser Name Role Phone Unavailable Primary Care Provider Unavailabl e Encounter Details Date Type Department Care Team (Latest Contact Info) Description 08/24/1999 [facility] [place] [address] [facility] [address] [place] [phone] Caren Vargas NO ADDRESS ON FILE Edema (Primary Dx); Palpitations Social History Tobacco Use Types Packs/Day Years Used Date Smoking Tobacco: Never Assessed Comments Unknown Sex and Gender Information Value Date Recorded Sex Assigned at Not on file 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
--- OUTSIDE RECORDS SUMMARY | 2024-11-18 12:58 | XMS_ITS | Encounter Summary ---
Author Organization [facility] Address [address] [place] [address] Care Team Providers Care Rigger Up Name Role Phone Unavailable Primary Care Provider Unavailabl e Encounter Details Date Type Department Care Team (Latest Contact Info) Description 05/09/2000 Outpatient Historical [facility] Medicine [place] [address] [facility] [address] [place] [address] Cade Eduardo, NO ADDRESS ON FILE Pain in joint, forearm (Primary Dx) Social History Tobacco Use Types Packs/Day Years Used Date Smoking Tobacco: Never Assessed Comments Unknown Sex and Gender Information Value Date Recorded Sex Assigned at Not on file 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
--- OUTSIDE RECORDS SUMMARY | 2024-11-18 12:58 | XMS_ITS | Encounter Summary ---
Author Organization [facility] Address [address] [place] [address] Care Team Providers Care Magnetic Prospector Name Role Phone Unavailable Primary Care Provider Unavailabl e Encounter Details Date Type Department Care Team (Latest Contact Info) Description 11/11/1999 Outpatient [facility] Medicine [address] [address] Cade Eduardo, NO ADDRESS ON FILE Cardiac dysrhythmia, unspecified (Primary Dx) Social History Tobacco Use Types Packs/Day Years Used Date Smoking Tobacco: Never Assessed Comments Unknown Sex and Gender Information Value Date Recorded Sex Assigned at Not on file 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
--- OUTSIDE RECORDS SUMMARY | 2024-11-18 12:58 | XMS_ITS | Encounter Summary ---
Author Organization [facility] Address [address] [place] [address] Care Team Providers Care Noise Abatement Engineer Name Role Phone Unavailable Primary Care Provider Unavailabl e Encounter Details Date Type Department Care Team (Latest Contact Info) Description 02/26/1997 Outpatient Historical [facility] Rheumatology- [facility] [place] [address] [place] [phone] Myalgia and myositis, unspecified (Primary Dx); Unspecified gastritis and gastroduodenitis without mention of hemorrhage; Tension headache Social History Tobacco Use Types Packs/Day Years Used Date Smoking Tobacco: Never Assessed Comments Unknown Sex and Gender Information Value Date Recorded Sex Assigned at Not on file 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
--- OUTSIDE RECORDS SUMMARY | 2024-11-18 12:58 | XMS_ITS | Encounter Summary ---
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
--- OUTSIDE RECORDS SUMMARY | 2024-11-18 12:58 | XMS_ITS | Clinical Summary ---
Author Organization [facility] Address [address] [place] [address] Phone Care Team Providers Care Expeller Worker Name Role Phone Unavailable Primary Care Provider Unavailabl e Allergies Active Allergy Reactions Criticality Noted Date Comments Penicillins Rash Low 11/06/2015 Medications HYDROcodone-acet aminophen (NORCO) 10-325 mg Tablet Take 1 Tablet by mouth 3 times daily. Active loratadine-pseud oephedrine (CLARITIN-D) 10-240 mg Extended Release 24 hour tablet Take 1 Tablet by mouth daily. Active ALENDRONATE SODIUM (FOSAMAX ORAL) Take by mouth daily. Active CALCIUM CARBONATE (CALCIUM 500 ORAL) Take by mouth 2 times daily. Active vitamin A 10,000 unit capsule Take 10,000 Units by mouth 2 times daily. 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 Gender Identity Not on file Sexual Orientation Not on file Last Filed Vital Signs Vital Sign Reading Time Taken Comments Blood Pressure 111/73 11/06/2015 6:06 PM CDT Pulse - - Temperature 36.7 C (98.1 F) 11/06/2015 6:06 PM CDT Respiratory Rate 14 11/06/2015 6:06 PM CDT Oxygen Saturation 96% 11/06/2015 6:06 PM CDT Inhaled Oxygen Concentration - - Weight 63.9 kg (140 lb 12.8 oz) 11/06/2015 4:52 PM CDT Height 175.3 cm (5' 9 ) 11/06/2015 4:52 PM CDT Body Mass Index 20.79 11/06/2015 4:52 PM CDT Plan of Treatment Health Maintenance Due Date Last Done Comments DTAP/TDAP/TD VACCINES (1 - Tdap) 1980 HPV/Cotest (21-29) 1982 HPV/Cotest (30-65) 10/06/1991 BREAST CANCER SCREENING 2001 CERVICAL CANCER SCREENING 10/10/2005 PAP SMEAR 10/10/2005 10/10/2002 COLORECTAL SCREENING 2006 Colorectal Cancer Screening 2006 FIT-DNA Q 3 years 2006 FIT/FOBT Q 1 year 2006 Flex Sig/CT Colonography Q 5 years 2006 ZOSTER VACCINE (1 of 2) 10/06/2011 INFLUENZA VACCINE (#1) 2024 RSV VACCINE (60+ or ) (1 - 1-dose 75+ series) 2036 Insurance MEDICARE PART A [place] B [id number]
--- OUTSIDE RECORDS SUMMARY | 2024-11-18 12:59 | XMS_ITS | Encounter Summary ---
Author Organization [facility] Address [address] [place] [address] Care Team Providers Care Chute Greaser Name Role Phone Unavailable Primary Care Provider Unavailabl e Encounter Details Date Type Department Care Team (Late st Contact Info) Description 10/10/2002 Outpatient Historical [facility] Medicine [address] [phone] Essie Bill, [facility] [address] [address] Social History Tobacco Use Types Packs/Day Years Used Date Smoking Tobacco: Never Assessed Comments Unknown Sex and Gender Information Value Date Recorded Sex Assigned at Not on file Legal Sex Female 5:32 AM DATA MANAGEMENT SPECIALIST Gender Identity Not on file Sexual Orientation Not on file documented as of this encounter Plan of Treatment Not on file documented as of this encounter Visit Diagnoses Not on filedocumented in this encounter
--- OUTSIDE RECORDS SUMMARY | 2024-11-18 12:59 | XMS_ITS | Encounter Summary ---
Author Organization [facility] Address [address] [place] [address] Care Team Providers Care Linen Room Houseperson Name Role Phone Unavailable Primary Care Provider Unavailabl e Encounter Details Date Type Department Care Team (Latest Contact Info) Description 10/03/2002 Outpatient Historical [facility] Medicine [address], [place] [phone] Tai Zuñiga MD [address], [place] [address] BONE & CARTILAGE DIS NEC (Primary Dx); LOSS OF WEIGHT; INSOMNIA NEC; ESOPHAGEAL REFLUX Social History Tobacco Use Types Packs/Day Years Used Date Smoking Tobacco: Never Assessed Comments Unknown Sex and Gender Information Value Date Recorded Sex Assigned at Not on file 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
--- OUTSIDE RECORDS SUMMARY | 2024-11-18 12:59 | XMS_ITS | Encounter Summary ---
Author Organization [facility] Address [address] [place] [address] Care Team Providers Care Executive Office Manager Name Role Phone Unavailable Primary Care Provider Unavailabl e Encounter Details Date Type Department Care Team (Latest Contact Info) Description 11/29/2000 Outpatient Historical [facility] Neurology [address] [place] [address] [place] [address] [place] [address] Pain in limb (Primary Dx); Cervicalgia Social History Tobacco Use Types Packs/Day Years Used Date Smoking Tobacco: Never Assessed Comments Unknown Sex and Gender Information Value Date Recorded Sex Assigned at Not on file 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
--- OUTSIDE RECORDS SUMMARY | 2024-11-18 12:59 | XMS_ITS | Encounter Summary ---
Author Organization [facility] Address [address] [place] [address] Care Team Providers Care Medical Management Specialist Name Role Phone Unavailable Primary Care Provider Unavailabl e Encounter Details Date Type Department Care Team (Latest Contact Info) Description 10/11/2000 Outpatient Historical [facility] Joseph Chance MD NO ADDRESS ON FILE Skin sensation disturb (Primary Dx); Pain in joint, forearm Social History Tobacco Use Types Packs/Day Years Used Date Smoking Tobacco: Never Assessed Comments Unknown Sex and Gender Information Value Date Recorded Sex Assigned at Not on file Legal Sex Female 5:32 AM NURSING EDUCATION CONSULTANT Gender Identity Not on file Sexual Orientation Not on file documented as of this encounter Plan of Treatment Not on file documented as of this encounter Visit Diagnoses Diagnosis Skin sensation disturb- Primary Disturbance of skin sensation Pain in joint, forearm documented in this encounter
--- OUTSIDE RECORDS SUMMARY | 2024-11-18 12:59 | XMS_ITS | Encounter Summary ---
Author Organization [facility] Address [address] [place] [address] Care Team Providers Care Music Rehabilitation Therapist Name Role Phone Unavailable Primary Care Provider Unavailabl e Encounter Details Date Type Department Care Team (Late st Contact Info) Description 10/03/2002 Outpatient Historical [facility] Emir Blair, CAR WRECKER [address] [place] [address] Social History Tobacco Use Types Packs/Day Years Used Date Smoking Tobacco: Never Assessed Comments Unknown Sex and Gender Information Value Date Recorded Sex Assigned at Not on file Legal Sex Female 5:32 AM CRANE RIGGER Gender Identity Not on file Sexual Orientation Not on file documented as of this encounter Plan of Treatment Not on file documented as of this encounter Visit Diagnoses Not on filedocumented in this encounter
--- OUTSIDE RECORDS SUMMARY | 2024-11-18 12:59 | XMS_ITS | Encounter Summary ---
Author Organization [facility] Address [address] [place] [address] Care Team Providers Care Utilization Review Specialist Name Role Phone Unavailable Primary Care Provider Unavailabl e Encounter Details Date Type Department Care Team (Latest Contact Info) Description 12/04/2000 Outpatient Historical [facility] Joseph Chance MD NO ADDRESS ON FILE Pain in joint, hand (Primary Dx) Social History Tobacco Use Types Packs/Day Years Used Date Smoking Tobacco: Never Assessed Comments Unknown Sex and Gender Information Value Date Recorded Sex Assigned at Not on file Legal Sex Female 5:32 AM STEREOPTICIAN Gender Identity Not on file Sexual Orientation Not on file documented as of this encounter Plan of Treatment Not on file documented as of this encounter Visit Diagnoses Diagnosis Pain in joint, hand- Primary documented in this encounter
--- OUTSIDE RECORDS SUMMARY | 2024-11-18 12:59 | XMS_ITS | Encounter Summary ---
Author Organization [facility] Address [address] [place] [address] Care Team Providers Care Revenue Cycle Specialist Name Role Phone Unavailable Primary Care Provider Unavailabl e Encounter Details Date Type Department Care Team (Latest Contact Info) Description 04/06/1999 Outpatient Historical [facility] Medicine [address] [place] [phone] Caren Vargas NO ADDRESS ON FILE Orbital cellulitis (Primary Dx); Acute sinusitis, unspecified; Conjunctivitis unspecified Social History Tobacco Use Types Packs/Day Years Used Date Smoking Tobacco: Never Assessed Comments Unknown Sex and Gender Information Value Date Recorded Sex Assigned at Not on file Legal Sex Female 5:32 AM CELLULOID TRIMMER Gender Identity Not on file Sexual Orientation Not on file documented as of this encounter Plan of Treatment Not on file documented as of this encounter Visit Diagnoses Diagnosis Orbital cellulitis- Primary Acute sinusitis, unspecified Conjunctivitis unspecified Conjunctivitis, unspecified documented in this encounter
--- OUTSIDE RECORDS SUMMARY | 2024-11-18 12:59 | XMS_ITS | Encounter Summary ---
Author Organization [facility] Address [address] [place] [address] Care Team Providers Care Refuge Manager Name Role Phone Unavailable Primary Care Provider Unavailabl e Encounter Details Date Type Department Care Team (Latest Contact Info) Description 01/03/1999 Outpatient [facility] Medicine [address] [address] Cade Eduardo, NO ADDRESS ON FILE Chest pain, unspecified (Primary Dx); Gynecologic examination; Vaginitis and vulvovaginitis, unspecified Social History Tobacco Use Types Packs/Day Years Used Date Smoking Tobacco: Never Assessed Comments Unknown Sex and Gender Information Value Date Recorded Sex Assigned at Not on file 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
--- OUTSIDE RECORDS SUMMARY | 2024-11-18 12:59 | XMS_ITS | Encounter Summary ---
Author Organization [facility] Address [address] [place] [address] Care Team Providers Care Top Precipitator Operator Helper Name Role Phone Unavailable Primary Care Provider Unavailabl e Encounter Details Date Type Department Care Team (Latest Contact Info) Description 02/10/1998 Outpatient [facility] Medicine [place] [address] [facility] [address] [place] [address] Caren Vargas NO ADDRESS ON FILE Unspecified gastritis and gastroduodenitis without mention of hemorrhage (Primary Dx); Degeneration of lumbar or lumbosacral intervertebral disc Social History Tobacco Use Types Packs/Day Years Used Date Smoking Tobacco: Never Assessed Comments Unknown Sex and Gender Information Value Date Recorded Sex Assigned at Not on file Legal Sex Female 5:32 AM NANOTECHNICIAN Gender Identity Not on file Sexual Orientation Not on file documented as of this encounter Plan of Treatment Not on file documented as of this encounter Visit Diagnoses Diagnosis Unspecified gastritis and gastroduodenitis without mention of hemorrhage- Primary Degeneration of lumbar or lumbosacral intervertebral disc documented in this encounter
--- OUTSIDE RECORDS SUMMARY | 2024-11-18 12:59 | XMS_ITS | Encounter Summary ---
Author Organization [facility] Address [address] [place] [address] Care Team Providers Care Medical Office Professional Instructor Name Role Phone Unavailable Primary Care Provider Unavailabl e Encounter Details Date Type Department Care Team (Latest Contact Info) Description 12/07/1998 Outpatient Historical [facility] [place] [facility] [place] 104 [facility] [address] [place] [address] Adria Garner MD [address] [address] Acute pharyngitis (Primary Dx); Abdominal pain, unspecified site Social History Tobacco Use Types Packs/Day Years Used Date Smoking Tobacco: Never Assessed Comments Unknown Sex and Gender Information Value Date Recorded Sex Assigned at Not on file 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
--- OUTSIDE RECORDS SUMMARY | 2024-11-18 12:59 | XMS_ITS | Encounter Summary ---
Author Organization [facility] Address [address] [place] [address] Care Team Providers Care Director Of Hotel Operations Name Role Phone Unavailable Primary Care Provider Unavailabl e Encounter Details Date Type Department Care Team (Latest Contact Info) Description 04/08/1998 Outpatient Historical [facility] Rheumatology- [place] [address] [place] [phone] Myalgia and myositis, unspecified (Primary Dx); Sleep disturbance, unspecified Social History Tobacco Use Types Packs/Day Years Used Date Smoking Tobacco: Never Assessed Comments Unknown Sex and Gender Information Value Date Recorded Sex Assigned at Not on file 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
--- OUTSIDE RECORDS SUMMARY | 2024-11-18 12:59 | XMS_ITS | Encounter Summary ---
Author Organization [facility] Address [address] [place] [address] Care Team Providers Care Tripe Finisher Name Role Phone Unavailable Primary Care Provider Unavailabl e Encounter Details Date Type Department Care Team (Latest Contact Info) Description 01/27/1999 Outpatient [facility] Medicine [place] 104 [facility] [address] [place] [phone] Caren Vargas NO ADDRESS ON FILE Temporomandibular joint disorders, unspecified (Primary Dx); Dental caries Social History Tobacco Use Types Packs/Day Years Used Date Smoking Tobacco: Never Assessed Comments Unknown Sex and Gender Information Value Date Recorded Sex Assigned at Not on file 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
--- OUTSIDE RECORDS SUMMARY | 2024-11-18 12:59 | XMS_ITS | Patient Health Record ---
Author Organization [facility] Address [address] [place] [address] Support Name Relationship Address Phone Danii Stein Guarantor Unknown Allergies Allergen (clinical drug ingredient) Drug/Non Drug Allergy documented on EMR Reaction Allergy Type Onset Date Status Penicillin Unknown Drug Allergy Active Reason For Referral No Information Medications Medication SIG (Take, Route, Frequency, Duration) Notes Start Date End Date Status ZyPREXA Active Singulair Active Zanaflex Active Mycostatin Active PriLOSEC Active Cymbalta Active Fosamax Active Plan Of Treatment No Information Insurance Providers Payer Name Payer Address Payer Phone Subscriber Number Group Number Insured Name Patient Relationship to Insured Coverage Start Date Coverage End Date Medicaid [address] [place] [phone] [id number] Danii Stein Self - patient is the insured Medicaid Dental [address] [place] [phone] [id number] Danii Stein Self - patient is the insured Medical (General) History Medical History History ICD Code osteoprosis
--- OUTSIDE RECORDS SUMMARY | 2024-11-18 12:59 | XMS_ITS | Encounter Summary ---
Author Organization [facility] Address [address] [place] [address] Care Team Providers Care Sample Tailor Name Role Phone Unavailable Primary Care Provider Unavailabl e Encounter Details Date Type Department Care Team (Latest Contact Info) Description 10/10/2002 Outpatient Historical [facility] Medicine [address] [phone] Kimberly Johnson MD [address] [place] [phone] Gynecologic examination (Primary Dx) Social History Tobacco Use Types Packs/Day Years Used Date Smoking Tobacco: Never Assessed Comments Unknown Sex and Gender Information Value Date Recorded Sex Assigned at Not on file 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
--- OUTSIDE RECORDS SUMMARY | 2024-11-18 12:59 | XMS_ITS | Encounter Summary ---
Author Organization [facility] Address [address] [place] [address] Care Team Providers Care Globe Changer Name Role Phone Unavailable Primary Care Provider Unavailabl e Encounter Details Date Type Department Care Team (Latest Contact Info) Description 05/27/2002 Outpatient Historical [facility] Medicine [address] [phone] Kimberly Johnson MD [address] [place] [phone] CELLULITIS OF LEG (Primary Dx) Social History Tobacco Use Types Packs/Day Years Used Date Smoking Tobacco: Never Assessed Comments Unknown Sex and Gender Information Value Date Recorded Sex Assigned at Not on file 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
--- OUTSIDE RECORDS SUMMARY | 2024-11-18 12:59 | XMS_ITS | Encounter Summary ---
Author Organization [facility] Address [address] [place] [address] Care Team Providers Care Principal Product Manager Name Role Phone Unavailable Primary Care Provider Unavailabl e Encounter Details Date Type Department Care Team (Late st Contact Info) Description 10/03/2002 Outpatient Historical [facility] Medicine [address] [phone] Emir Blair, GRADUATE ENGINEER [address], [place] [address] Social History Tobacco Use Types Packs/Day Years Used Date Smoking Tobacco: Never Assessed Comments Unknown Sex and Gender Information Value Date Recorded Sex Assigned at Not on file 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
--- OUTSIDE RECORDS SUMMARY | 2024-11-18 12:59 | XMS_ITS | Encounter Summary ---
Author Organization [facility] Address [address] [place] [address] Care Team Providers Care Rv Detailer Name Role Phone Unavailable Primary Care Provider Unavailabl e Encounter Details Date Type Department Care Team (Latest Contact Info) Description 08/29/2001 Outpatient [facility] Medicine [place] 104 [facility] 60 [place] [address] Gaby Ferguson MD NO ADDRESS ON FILE ARTIFIC MENOPAUSE STATES (Primary Dx) Social History Tobacco Use Types Packs/Day Years Used Date Smoking Tobacco: Never Assessed Comments Unknown Sex and Gender Information Value Date Recorded Sex Assigned at Not on file 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
--- OUTSIDE RECORDS SUMMARY | 2024-11-18 12:59 | XMS_ITS | Encounter Summary ---
Author Organization [facility] Address [address] [place] [address] Care Team Providers Care De Icer Name Role Phone Unavailable Primary Care Provider Unavailabl e Encounter Details Date Type Department Care Team (Latest Contact Info) Description 07/21/1998 Outpatient Historical [facility] Rheumatology- [place] [address] [place] [phone] Myalgia and myositis, unspecified (Primary Dx) Social History Tobacco Use Types Packs/Day Years Used Date Smoking Tobacco: Never Assessed Comments Unknown Sex and Gender Information Value Date Recorded Sex Assigned at Not on file 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
--- OUTSIDE RECORDS SUMMARY | 2024-11-18 12:59 | XMS_ITS | Encounter Summary ---
Author Organization [facility] Address [address] [place] [address] Care Team Providers Care Director Security Risk Management Name Role Phone Unavailable Primary Care Provider Unavailabl e Encounter Details Date Type Department Care Team (Latest Contact Info) Description 01/14/1998 Outpatient [facility] Medicine [address] [place] [address] Caren Vargas NO ADDRESS ON FILE Depressive disorder, not elsewhere classified (Primary Dx); Myalgia and myositis, unspecified Social History Tobacco Use Types Packs/Day Years Used Date Smoking Tobacco: Never Assessed Comments Unknown Sex and Gender Information Value Date Recorded Sex Assigned at Not on file 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
--- OUTSIDE RECORDS SUMMARY | 2024-11-18 12:59 | XMS_ITS | Encounter Summary ---
Author Organization [facility] Address [address] [place] [address] Care Team Providers Care Public Address Systems Mechanic Name Role Phone Unavailable Primary Care Provider Unavailabl e Encounter Details Date Type Department Care Team (Latest Contact Info) Description 08/26/1998 Outpatient [facility] Medicine [place] 104 [facility] [address] [place] [address] Caren Vargas NO ADDRESS ON FILE Myalgia and myositis, unspecified (Primary Dx); Sprain thoracic region; Abdominal pain, unspecified site Social History Tobacco Use Types Packs/Day Years Used Date Smoking Tobacco: Never Assessed Comments Unknown Sex and Gender Information Value Date Recorded Sex Assigned at Not on file 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
--- OUTSIDE RECORDS SUMMARY | 2024-11-18 12:59 | XMS_ITS | Clinical Summary ---
Author Organization [employer] Address [address] [place]: [place] [address] Care Team Providers Care Professor Of Biological Sciences Name Role Phone Unavailable Primary Care Provider Unavailabl e Allergies Active Allergy Reactions Criticality Noted Date Comments Penicillins Rash Low 11/06/2015 Medications HYDROcodone-acet aminophen (NORCO) 10-325 mg Tablet Take 1 Tablet by mouth 3 times daily. 11/06/2015 Active calcium carbonate (CALCIUM 500 ORAL) Take by mouth 2 times daily. 11/06/2015 Active loratadine-pseud oephedrine (CLARITIN-D) 10-240 mg Extended Release 24 hour tablet Take 1 Tablet by mouth daily. 11/06/2015 Active alendronate sodium (FOSAMAX ORAL) Take by mouth daily. 11/06/2015 Active vitamin A 10,000 unit capsule Take 10,000 Units by mouth 2 times daily. 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 Gender Identity Not on file Sexual Orientation Not on file Last Filed Vital Signs Vital Sign Reading Time Taken Comments Blood Pressure 111/73 11/06/2015 6:06 PM CDT Pulse - - Temperature 36.7 C (98.1 F) 11/06/2015 6:06 PM CDT Respiratory Rate 14 11/06/2015 6:06 PM CDT Oxygen Saturation - - Inhaled Oxygen Concentration - - Weight 63.9 kg (140 lb 12.8 oz) 11/06/2015 4:52 PM CDT Height 175.3 cm (5' 9 ) 11/06/2015 4:52 PM CDT Body Mass Index 20.79 11/06/2015 4:52 PM CDT Plan of Treatment Health Maintenance Due Date Last Done Comments DTAP/TDAP/TD VACCINES (1 - Tdap) 1980 HPV/Cotest (21-29) 1982 CERVICAL CANCER SCREENING 10/06/1991 HPV/Cotest (30-65) 10/06/1991 PAP SMEAR 10/06/1991 BREAST CANCER SCREENING 2001 COLORECTAL SCREENING 2006 Colorectal Cancer Screening 2006 FIT-DNA Q 3 years 2006 FIT/FOBT Q 1 year 2006 Flex Sig/CT Colonography Q 5 years 2006 ZOSTER VACCINE (1 of 2) 10/06/2011 INFLUENZA VACCINE (#1) 2024 RSV VACCINE (60+ or ) (1 - 1-dose 75+ series) 2036
--- OUTSIDE RECORDS SUMMARY | 2024-11-18 12:59 | XMS_ITS | Encounter Summary ---
Author Organization [facility] Address [address] [place] [address] Care Team Providers Care Records Management Manager Name Role Phone Unavailable Primary Care Provider Unavailabl e Encounter Details Date Type Department Care Team (Latest Contact Info) Description 03/17/1999 Outpatient Historical [facility] Medicine [place] 104 [facility] [address] [place] [phone] Caren Vargas NO ADDRESS ON FILE Pain in thoracic spine (Primary Dx) Social History Tobacco Use Types Packs/Day Years Used Date Smoking Tobacco: Never Assessed Comments Unknown Sex and Gender Information Value Date Recorded Sex Assigned at Not on file 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
--- OUTSIDE RECORDS SUMMARY | 2024-11-18 12:59 | XMS_ITS | Encounter Summary ---
Author Organization [facility] Address [address] [place] [address] Care Team Providers Care Box Builder Name Role Phone Unavailable Primary Care Provider Unavailabl e Encounter Details Date Type Department Care Team (Latest Contact Info) Description 05/17/1999 Outpatient Historical [facility] Family Medicine- [place] [address] [place] [address] Cade Eduardo DO NO ADDRESS ON FILE Backache, unspecified (Primary Dx) Social History Tobacco Use Types Packs/Day Years Used Date Smoking Tobacco: Never Assessed Comments Unknown Sex and Gender Information Value Date Recorded Sex Assigned at Not on file 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
--- NOTE | 2024-11-18 14:24 | ED_ITS ---
HPI - Headache General: Chief Complaint: Headache Stated Complaint: Headache day Time Seen by Provider: 11/18/24 13:40 History of Present Illness: Patient is a 64-year-old female history of GERD, anxiety, COPD, presents to the emergency room with a headache. She describes the headache as the top of her head, posterior occipital it and upper neck. She denies any sinus issues at this time, however has some from time to time. This has occurred consistently in the last 2 days, with minimal relief with Tylenol, and ibuprofen. It has been worsening with waxing and waning symptoms last 2 days. She did have a CT of her head 3 weeks ago for her new onset of headache over the last 3 months. She also had a CT of her head and is currently awaiting MRI of head and neck on this Sunday, in 3 days. She has association of nausea without emesis. No recent cold, fever, chills. No urinary symptoms. No new medications. Associated symptoms: Deny chest pain, confusion, fever(s), nausea, rash or vomiting Related Data Home Medications ?Medication ?Instructions ?Recorded ?Confirmed calcium carbonate 500 mg PO DAILY 02/16/2107/04 cholecalciferol (vitamin D3) 250 2,000 unit PO DAILY 0 09/19/23 11/13/24 mcg (10,000 unit) capsule cyanocobalamin (vitamin B-12) 2,500 mcg PO DAILY 10/1611/13/24 2,500 mcg chewable tablet ferrous sulfate 325 mg (65 mg 325 mg PO DAILY 10/17/23 11/13/24 iron) tablet (FeroSul) vitamin E (dl, acetate) 180 mg 180 mg PO DAILY 11/13/24 (400 unit) capsule cyclobenzaprine 10 mg tablet 10 mg PO DAILY 11/11/24 0 11/13/24 loratadine 10 mg tablet 10 mg PO DAILY 11/13/2407/04 Previous Rx's ?Medication ?Instructions ?Recorded albuterol sulfate 90 mcg/actuation 2 puff inhalation Q 6H PRN 07/29/23 aerosol inhaler shortness of breath or wheez ing #8.5 grams olanzapine 15 mg tablet 15 mg PO DAILY #90 tabs 10/03 conj estrogen-medroxyprogesterone 1 tab PO DAILY #28 t abs 05/02/24 0.45 mg-1.5 mg tablet (Prempro) potassium chloride 10 mEq 10 meq PO DAILY #90 caps capsule,extended release duloxetine 60 mg capsule,delayed 60 mg PO DAILY #90 ca ps 08/14/24 release alendronate 10 mg tablet 10 mg PO DAILY #90 tabs 10/11 04/05 duloxetine 30 mg capsule,delayed 30 mg PO DAILY #90 ca ps 10/30/24 release omeprazole 20 mg capsule,delayed 20 mg PO DAILY #90 ca ps 10/30/24 release buspirone 10 mg tablet 10 mg PO BID #60 tabs meloxicam 15 mg tablet 15 mg PO DAILY #30 tabs 10/11 09/03 temazepam 15 mg capsule 15 mg PO .qpm PRN insomnia # 30 caps 11/04/24 methocarbamol 750 mg tablet 750 mg PO Q8H PRN muscle s pasm #30 11/18/24 tabs Allergies Allergy/AdvReac Type Severity Reaction Status Date / Time Penicillins Allergy Mild ALGY-Hives Verified 11/13/24 10:52 Review of Systems General: Reports: 10 or more systems reviewed and unremarkable except in HPI and below Const: Denies: fever(s) or chills Eyes: Denies: change in vision or blurry vision ENMT: Denies: throat pain, mouth pain, nasal discharge, nasal congestion or post nasal drip Card: Denies: chest pain or palpitations Resp: Denies: dyspnea or productive cough GI: Denies: abdominal pain, nausea or vomiting : Denies: flank pain or difficulty voiding Musc: Reports: neck pain (ongoing x 3 months); Denies: back pain, extremity swelling, joint pain, joint swelling or limited range of motion Skin/Breast: Denies: rash or pruritus Neuro: Reports: headache(s); Denies: numbness in extremities, weakness in extremities, sensory changes, lack of coordination, difficulty walking, dizziness, vertigo or confusion PFS ED PFSH: Medical History (Updated 11/18/24 @ 17:46 by ROD Parks) Other insomnia Neck pain Liver mass on CT--benign on MRI--cavernous hemangioma Tardive dyskinesia has been on olanzapine intermediate Weight loss, abnormal Hypokalemia Premature menopause on hormone replacement therapy was on Prempro0.3/1.5mg since hyst in her 20s; hot flashes still; Screening for lung cancer LDCT done 03.20.24 Nicotine dependence, cigarettes, in remission Allergic rhinitis due to allergen Arthritis of left sacroiliac joint Chronic bronchitis with COPD (chronic obstructive pulmonary disease) Obesity (BMI 30.0-34.9) Anxiety and depression Asthma due to environmental allergies Chronic low back pain now going to [facility] for injections; hx of spinal stimulator that has been removed Vitamin D deficiency Osteoporosis DEXA 07/2018--started fosamax Hyperlipidemia Fibromyalgia GERD (gastroesophageal reflux disease) Surgical History History of back surgery lumbar also, had spinal cord stimulator, then had it removed History of shoulder surgery left History of hysterectomy with BSO; done for endometriosis; no cancer History of neck surgery History of hand surgery bilateral carpal tunnel Family History Family/Other Diabetes Maternal aunt Mother Hypertension Father Hypertension Heart disease Denies family history of Clotting disorder Dementia Hyperlipidemia Chronic kidney disease (CKD) Anesthesia complication Bleeding disorder Lung disease Cancer Stroke Social History Smoking and tobacco/nicotine status: former use of tobacco/nicotine Quit status (tobacco/nicotine): has quit using Year quit tobacco: 2019 Former quit date comment: 1ppd Alcohol intake: current Alcohol intake frequency: holidays/special occasions only Substance/Drug Use: never Adopted: No Caregiver/support person: No Lives independently: Yes Household members: other Details: mother Marital status: Number of children: 2 Number of grandchildren: 1 Highest education level completed: 11th Grade service: No Current occupational status: disabled 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[employer]; 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 Pets and animals: Yes Pets & animals: dog(s) Do you think of yourself as: Straight/Heterosexual Current gender identity: Female Hodan/Buddhism: None Special hodan needs: No Physical Exam Const: COMMON NORMALS: no acute distress, average body habitus and patient oriented x3 HENMT: COMMON NORMALS: normocephalic and atraumatic HEAD & SCALP: normocephalic and atraumatic Neck/C-Spine: COMMON NORMALS: full ROM, no lymphadenopathy and supple Lymph: LYMPHATIC: no lymphadenopathy noted Chest: COMMONS NORMALS: normal inspection of the chest and normal palpation of entire chest wall Resp: COMMON NORMALS: normal respiratory effort, No retractions and clear to auscultation bilaterally AUSCULTATION: clear to auscultation bilaterally Cardio: COMMON NORMALS: regular rate and regular rhythm RATE: regular rate RHYTHM: regular rhythm GI: COMMON NORMALS: Normal to inspection, nondistended, normoactive bowel sounds present, Soft to palpation, non-tender and No hepatosplenomegaly present PALPATION: Yes Soft to palpation and Yes No hepatosplenomegaly present : COMMON NORMALS: Yes no CVA tenderness BLADDER/KIDNEY EXAM: Yes no CVA tenderness Back/Pelvis: COMMON NORMALS: no CVA tenderness Extremity: COMMON NORMALS: normal to inspection, full ROM and capillary refill normal Neuro: CAMELIA COMA SCALE: document GCS findings COMMON NORMALS: patient oriented x3 and CN's II-XII intact bilaterally Psych: COMMON NORMALS: mental status grossly normal, Normal thought process present and cooperative THOUGHT PROCESS: Normal thought process present Skin: COMMON NORMALS: no rashes or lesions noted and no wounds GENERAL SKIN EXAM: no rashes or lesions noted Course Reevaluation(s): Reevaluation #1: Headache still not improved. Blood pressure still elevated. Dilaudid added. Reevaluation #2: Patient states her headache continues to hurt, in the back of her neck. Blood pressure still elevated. CT of the head and neck added, as well as IM diphenhydramine Vital Signs: Vital signs: Vital Signs Temperature 97.4 F L 11/18/24 12:59 Pulse Rate 92 11/18/24 18:49 Respiratory Rate 16 11/18/24 18:49 Blood Pressure 152/81 11/18/24 18:49 Pulse Oximetry 100 11/18/24 18:49 Oxygen Delivery Me thod Room Air 11/18/24 17:00 MDM - Headache Medical Decision Making Patient is a 4-year-old female with ongoing headache for the last 3 months, waxing and waning symptoms last 2 days. She does not have any visual changes. Her neuroexam is without any cranial nerve changes. She does not have any sensation changes. I suspect a component of elevated blood pressure that has been consistently higher in the emergency room. Will place patient on a Dash diet for home use, headache diary, decrease ibuprofen use, and give Toradol, Norflex, dexamethasone before reassessing. CT of head neck is not necessary to repeat at this time since there is no worsening in nature from her previous complaints just ongoing with waxing and waning symptoms. Intracranial bleed is less likely on differential since this has been recently assessed, and there is no change in baseline. MRI is pending for this Sunday as well. Medical Records I reviewed the patient's medical records. Lab Data Radiology Impressions Cervical Spine CT 11/18/24 16:03 IMPRESSION: 1. No acute bony abnormality identified. 2. Chronic appearing degenerative and postsurgically changes, as described above. 3. Decreased bone density. Limited sensitivity. COMMENTS: MRI is the gold standard to evaluate for potential disc bulges, central canal and foraminal stenosis, spinal cord abnormality. Head CT 11/18/24 16:03 IMPRESSION: 1. No evidence for acute intracranial abnormality. 2. Mild generalized intracranial atrophy with possible chronic ischemic changes. 3. Sinusitis. All radiology interpretation(s) finalized by discharge Discharge Plan Discharge Patient Disposition: Home Clinical Impression: Migraine aura, persistent, intractable Condition: Stable Prescriptions: New methocarbamol 750 mg tablet 750 mg PO Q8H PRN (Reason: muscle spasm) Qty: 30 0RF No Action cholecalciferol (vitamin D3) 250 mcg (10,000 unit) capsule 2,000 unit PO DAILY calcium carbonate 500 mg calcium (1,250 mg) tablet 500 mg PO DAILY Prempro 0.45-1.5 mg tablet 1 tab PO DAILY Qty: 28 5RF meloxicam 15 mg tablet 15 mg PO DAILY Qty: 30 0RF temazepam 15 mg capsule 15 mg PO .qpm PRN (Reason: insomnia) Qty: 30 0RF alendronate 10 mg tablet 10 mg PO DAILY Qty: 90 3RF Rx Instructions: TAKE ONE TABLET BY MOUTH DAILY FOR BONE DENSITY omeprazole 20 mg capsule,delayed release(DR/EC) 20 mg PO DAILY Qty: 90 3RF Rx Instructions: TAKE ONE CAPSULE BY MOUTH DAILY duloxetine 30 mg capsule,delayed release(DR/EC) 30 mg PO DAILY Qty: 90 3RF Rx Instructions: TAKE ONE DAILY ALONG WITH 60 MG CAPSULE ferrous sulfate [FeroSul] 325 mg (65 mg iron) tablet 325 mg PO DAILY vitamin E (dl, acetate) 180 mg (400 unit) capsule 180 mg PO DAILY cyanocobalamin (vitamin B-12) 2,500 mcg tablet,chewable 2,500 mcg PO DAILY cyclobenzaprine 10 mg tablet 10 mg PO DAILY albuterol sulfate 90 mcg/actuation HFA aerosol inhaler 2 puff inhalation Q6H PRN (Reason: shortness of breath or wheezing) Qty: 8.5 5RF olanzapine 15 mg tablet 15 mg PO DAILY Qty: 90 2RF Rx Instructions: TAKE ONE TABLET BY MOUTH DAILY FOR MENTAL HEALTH potassium chloride 10 mEq capsule, extended release 10 meq PO DAILY Qty: 90 3RF Rx Instructions: TAKE ONE CAPSULE BY MOUTH DAILY FOR POTASSIUM REPLACEMENT duloxetine 60 mg capsule,delayed release(DR/EC) 60 mg PO DAILY Qty: 90 2RF Rx Instructions: TAKE ONE CAPSULE BY MOUTH DAILY FOR MENTAL HEALTH ALONG WITH 30 MG CAPSULE buspirone 10 mg tablet 10 mg PO BID Qty: 60 3RF loratadine 10 mg tablet 10 mg PO DAILY Rx Instructions: TAKE ONE TABLET BY MOUTH DAILY FOR ALLERGIES Discharge Orders: Discharge ED (Routine); Ordered 11/18/24 Ordered By: Larissa Landeros Referrals: Dianne Lyon MD [Primary Care Provider, Family Practice] Discharge Diet: Usual diet Discharge Activity: Resume usual activity Patient Instructions: Acute Headache (ED), DASH Eating Plan (ED), Opioid Safety, Pain Management, Patient Portal & [place] Instructions Activity Restrictions/Additional Instructions: - Continue with your appointment for MRI of head and neck on Sunday - Return to ED with worsening pain in your head and neck - As discussed, as you do have sinusitis, obtain Astepro and fluticasone [id number] nose sprays, utilize 2 sprays each nose twice daily. - Tylenol for pain. Avoid ibuprofen, naproxen to avoid increase your blood pressure - Follow low-sodium diet - Take a blood pressure log with daily blood pressures daily to your doctor. Call tomorrow for scheduled follow-up. Print Language: Venezuelan Coding Level of Care Code ED Assembly Person for Susan Tolbert
[2024-11-18] MEDS: orphenadrine 30 mg/mL Inj 2 mL 60 MG IM (14:27)
[2024-11-18] MEDS: HYDROmorphone 0.5 MG/0.5 ML INJ 1 MG IM ×2 (15:37→18:07)
[2024-11-18] MEDS: ondansetron hcl ODT 4 mg Tab PO (15:37)
--- NOTE | 2024-11-18 16:03 | CTR_ITS ---
PROCEDURE INFORMATION: Exam: CT Cervical Spine Without Contrast Exam date and time: 11/18/2024 4:31 PM Age: 64 years old Clinical indication: Neck pain; Prior surgery; Surgery date: 6+ months; Surgery type: Cspine; Additional info: Ongoing headache and neck pain TECHNIQUE: Imaging protocol: Computed tomography of the cervical spine without contrast. Radiation optimization: All CT scans at this facility use at least one of these dose optimization techniques: automated exposure control; mA and/or kV adjustment per patient size (includes targeted exams where dose is matched to clinical indication); or iterative reconstruction. COMPARISON: CR XR cervical spine 3V* [id number] 10/16/2024 3:18 PM RADIATION DOSE METRICS: Total DLP (mGy-cm): 143.6 FINDINGS: Tubes, catheters and devices: Artifact created by metallic hardware. Bones: Diffusely decreased bone density. Vertebral body fusion, intervertebral discectomy hardware identified within C5-C6 level. Adjacent metallic anterior vertebral body plate and screws are demonstrated. Normal alignment of the vertebra without dislocation or spondylolisthesis. No visualized evidence for acute bony fracture or dislocation. Moderate to severe bony degenerative changes involving the anterior cervical cranial junction. Moderate to severe generalized bony degenerative changes. Multilevel disc and osteophyte complexes with moderate to severe central canal and foraminal narrowing. Most severe foraminal narrowing identified bilaterally at C3-C4, C4-C5 and C6-C7 levels. Bony structures appear otherwise unremarkable. Mastoid air cells: The visualized bilateral mastoid air cells appear clear. Lungs: Pleural and lung parenchymal linear scarring identified within bilateral apices. Vasculature: Mild atherosclerotic arterial vascular wall calcifications are demonstrated. Soft tissues: Unremarkable. CT/CT cervical spin wo con* [id number] IMPRESSION: 1. No acute bony abnormality identified. 2. Chronic appearing degenerative and postsurgically changes, as described above. 3. Decreased bone density. Limited sensitivity. COMMENTS: MRI is the gold standard to evaluate for potential disc bulges, central canal and foraminal stenosis, spinal cord abnormality.
--- NOTE | 2024-11-18 16:03 | CTR_ITS ---
PROCEDURE INFORMATION: Exam: CT Head Without Contrast Exam date and time: 11/18/2024 4:31 PM Age: 64 years old Clinical indication: Pain; Headache; Migraine; Aura effect not specified; Additional info: Ongoing headache and neck pain TECHNIQUE: Imaging protocol: Computed tomography of the head without contrast. Radiation optimization: All CT scans at this facility use at least one of these dose optimization techniques: automated exposure control; mA and/or kV adjustment per patient size (includes targeted exams where dose is matched to clinical indication); or iterative reconstruction. COMPARISON: CT head wo con* [id number] 10/22/2024 10:44 AM RADIATION DOSE METRICS: Total DLP (mGy-cm): 1154.4 FINDINGS: Brain: See Cerebral ventricles finding. Mild generalized intracranial atrophy with perhaps mild central white matter hypodensity, suggesting chronic small vessel white matter ischemic changes. No definite evidence for acute infarct. Normal batista-white matter interfaces. No focal mass lesions. No intra-axial or extra-axial fluid collections, hemorrhage or mass. No mass effect or midline shift. The pineal, sellar, brainstem, cerebellum regions appear grossly unremarkable. Cerebral ventricles: The ventricles, sulci, cisterns appear slightly prominent, related to mild generalized atrophy. No evidence for hydrocephalus. Paranasal sinuses: Fluid within bilateral ethmoid air cells compatible with acute ethmoid sinusitis. Fluid within left maxillary sinus compatible with acute maxillary sinusitis. The visualized paranasal sinuses appear otherwise clear. Mastoid air cells: The visualized bilateral mastoid air cells appear clear. Bones: [id number] bony degenerative changes involving the anterior cervical cranial junction. Diffusely decreased bone density. No visualized evidence for acute bony fracture or dislocation. Soft tissues: Unremarkable. Vasculature: Unremarkable. CT/CT head wo con* [id number] IMPRESSION: 1. No evidence for acute intracranial abnormality. 2. Mild generalized intracranial atrophy with possible chronic ischemic changes. 3. Sinusitis.
[2024-11-18] MEDS: diphenhydrAMINE 50 mg/mL SDV 1mL IM (16:47)
== END 2024-11-18 18:48 | disposition home or self-care (01) ==
PROVIDERS: Emergency Provider Physician Assistant; PCP Family Medicine
DX: G43.119 Migraine with aura, intractable, without status migrainosus (principal); Z87.891 Personal history of nicotine dependence; E78.5 Hyperlipidemia, unspecified; J44.9 Chronic obstructive pulmonary disease, unspecified
CPT/HCPCS: 70450; 72125; 96372; 99284; J1100; J1171; J1200; J1885; J2360; J9999; Q0162

== ENCOUNTER 2024-11-21 07:51 | Outpatient (CLI) | payer OTHER, MEDICAID, SELFPAY ==
--- NOTE | 2024-11-21 08:00 | MR_ITS ---
WS: [id number] MRI CERVICAL SPINE NONCONTRAST HISTORY: neck pain and SMITH COMPARISON: Cervical spine CT 11/18/2024. Prior MRI C-spine 06/13/2016 Technique: Multiplanar, multisequence noncontrast imaging of the cervical spine. Normal posterior alignment. Anterior cervical fusion hardware has been placed at C5-6 with interbody spacer. There is no marrow edema or fracture. Signal within the cervical cord is normal. Visualized posterior fossa is unremarkable. Craniocervical junction, C1 and C2 relationship, odontoid process and soft tissues are normal. C2-C3: Normal. C3-C4: Mild annular disc bulging with small vertebral body osteophytes and facet arthritis. Mild foraminal stenosis. C4-C5: Diffuse annular disc bulging with osteophytic ridging and moderate facet disease. Mild progression of stenosis since the prior study. Moderate to severe central and bilateral foraminal stenosis. C5-C6: Mild annular disc bulging and osteophytic ridging. Mild facet arthritis. Mild central and bilateral foraminal stenosis. Large previously described central disc protrusion has been surgically excised. C6-C7: Mild annular disc bulging with osteophytic ridging. Bilateral facet joint arthritis. Moderate central and LEFT foraminal stenosis. Severe RIGHT foraminal stenosis. C7-T1: Small central disc protrusion. No central high-grade stenosis. T1-2: Small central disc protrusion. Small cervical chain lymph nodes. MR/MR cervical spin wo con* [id number] IMPRESSION: 1. Status post anterior cervical fusion at C5-6 with interbody spacer which ap pears intact. 2. Multilevel stenoses due to disc disease, osteophytosis and facet arthritis. 3. C4-5: Moderate to severe central and bilateral foraminal stenosis. 4. C6-7: Moderate central and LEFT foraminal stenosis. Severe RIGHT foraminal stenosis. 5. C5-6: Mild central and bilateral foraminal stenosis. 6. Mild foraminal stenosis at C3-4. 7. Small central disc protrusions at C7 1 and T1-2.
--- NOTE | 2024-11-21 08:45 | MR_ITS ---
WS: [id number] MRI BRAIN WITHOUT CONTRAST HISTORY: new persistent SMITH; head CT neg COMPARISON: CT head 11/18/2024, MRI 06/27/2016 TECHNIQUE: Diffusion imaging, multiplanar T1, T2 and FLAIR imaging obtained. No evidence for acute infarct or hemorrhage. Culp-white matter differentiation is normal. Mild symmetric cerebral and cerebellar atrophy. Reidentified is a small lacunar infarct versus perivascular space in the RIGHT cerebellum measuring 5 mm. No new infarct. No area of hemorrhage. Ventricles and extra-axial spaces are normal. No inferior displacement of cerebellar tonsils. The sella turcica and pituitary gland are unremarkable. Dural venous sinuses and [place] of [place] demonstrate no abnormality on this unenhanced studies. Paranasal sinuses: Mucoperiosteal thickening in the maxillary sinuses. There is a large mucous retention cyst in the RIGHT maxillary antrum. Small air-fluid level LEFT maxillary sinus. Mild mucoperiosteal thickening of the ethmoid air cells and frontal sinuses. Mastoid air cells: Normal. Calvarium and scalp: Intact. MR/MR head wo con* [id number] IMPRESSION: 1. No acute infarct, hemorrhage or edema. 2. MRI brain is similar to the study from 06/27/2016. 3. Stable RIGHT cerebellar lacunar infarct versus perivascular space. 4. New mucoperiosteal thickening in the maxillary, ethmoid and frontal sinuses with a very small air-fluid level in the LEFT maxillary sinus.
== END 2024-11-21 07:52 | disposition home or self-care (01) ==
LOC: RAD 07:51
PROVIDERS: PCP Family Medicine; Visit Provider Family Medicine
DX: M54.2 Cervicalgia (principal); G44.52 New daily persistent headache (NDPH)
CPT/HCPCS: 70551; 72141

== ENCOUNTER 2024-12-10 05:00 | Outpatient (RCR) | payer OTHER, MEDICAID, SELFPAY | END 2025-01-09 23:59 | disposition home or self-care (01) | LOC: SPT 05:00 | PROVIDERS: PCP Family Medicine; Visit Provider Family Medicine | DX: R26.89 Other abnormalities of gait and mobility (principal); R26.81 Unsteadiness on feet | CPT/HCPCS: 97110; 97530 ==

== ENCOUNTER → 2024-12-15 13:34 | Outpatient (BNVA) | payer OTHER, MEDICAID, SELFPAY | PROVIDERS: PCP Family Medicine; Visit Provider Anesthesiology Pain Medicine | DX: M54.50 Low back pain, unspecified (principal); G89.29 Other chronic pain; M47.816 Spondylosis without myelopathy or radiculopathy, lumbar region | CPT/HCPCS: 99214 ==

== ENCOUNTER → 2024-12-31 14:19 | Outpatient (BNVA) | payer OTHER, MEDICAID, SELFPAY | PROVIDERS: PCP Family Medicine; Visit Provider Anesthesiology Pain Medicine | DX: M47.816 Spondylosis without myelopathy or radiculopathy, lumbar region (principal) | CPT/HCPCS: 64493; 64494; 64495; J3490; J9999 ==

== ENCOUNTER 2025-01-10 05:00 | Outpatient (RCR) | payer MEDICAID, MEDICARE, SELFPAY | END 2025-02-08 23:59 | disposition home or self-care (01) | LOC: SPT 05:00 | PROVIDERS: PCP Family Medicine; Visit Provider Family Medicine | DX: R26.89 Other abnormalities of gait and mobility (principal); R26.81 Unsteadiness on feet | CPT/HCPCS: 97110; 97530 ==

== ENCOUNTER → 2025-01-12 08:33 | Outpatient (BNVA) | payer OTHER, MEDICAID, SELFPAY | PROVIDERS: PCP Family Medicine; Visit Provider Anesthesiology Pain Medicine | DX: M47.816 Spondylosis without myelopathy or radiculopathy, lumbar region (principal); G89.29 Other chronic pain | CPT/HCPCS: 99214 ==

== ENCOUNTER 2025-01-13 06:35 | Day surgery (SDC) | payer OTHER, MEDICAID, SELFPAY ==
[2025-01-13 06:45] VITALS: BP 146/88; PULSE 117; RESP 18; TEMP 36.6; O2SAT 94; BMI 24.1
--- NOTE | 2025-01-13 07:01 | ANES.PREANE2 ---
Pre-Anesthetic Assessment Height/Weight: Height 1.73 m Weight 72.121 kg Temp Pulse Resp BP Pulse Ox O2 Del Method 97.8 F 117 H 18 146/88 94 Room Air 01/13/25 06:45 01/13/25 06:45 01/13/25 06:45 01/13/25 06:45 01/13/25 06:45 01/13/25 06:45 Preop Diagnosis: screening Operation Date: 01/13/25 08:00 Proposed Procedures p Colonoscopy [id number] G0121 Z12.11(Not Applicable) - Christopher Weller MD Was Beta Lloyd taken within 24 hours: N/A Was Clonidine taken within 24 hours: N/A Last intake: Intake Last Liquid Date 01/12/25 Last Liquid Time 23:50 Last Solid Date 01/11/25 Last Solid Time 20:00 Social No alcohol and No tobacco edibles for headache Exam alert and oriented x 3 Airway Submandibular: within normal limits Cervical ROM: within normal limits Mallampati: Class II Dentition: false Comments: Comments: top dentures in History/ROS No significant history except as noted Pulmonary Chronic Obstructive Pulmonary Disease (not used inhaler in 9 months) CV/HEM None reported None reported Hepatic None reported GI None reported Musc/skel Lower Back Pain Neuropsych Anxiety, Depression and Headache Anesthetic Plan ASA status: 3 Anesthesia: MAC Risk of > 500 ml blood loss (7ml/kg in children): No Medications/Allergies Home Medications ?Medication ?Instructions ?Recorded ?Confirmed ?Last Taken ?Type calcium carbonate 500 mg PO DAILY 02/16/21 01/13/25 01/12/25 History albuterol sulfate 90 mcg/actuation 2 puff inhalation Q6H PRN 07/29/23 01/12/25 11/07/23 Rx aerosol inhaler shortness of breath or wheezing #8.5 grams cholecalciferol (vitamin D3) 250 2,000 unit PO DAILY 09/19/23 01/13/25 01/12/25 History mcg (10,000 unit) capsule cyanocobalamin (vitamin B-12) 2,500 mcg PO DAILY 10/17/23 01/13/25 01/12/25 History 2,500 mcg chewable tablet ferrous sulfate 325 mg (65 mg 325 mg PO DAILY 10/17/23 01/13/25 01/12/25 History iron) tablet (FeroSul) vitamin E (dl, acetate) 180 mg 180 mg PO DAILY 10/17/23 01/13/25 01/12/25 History (400 unit) capsule olanzapine 15 mg tablet 15 mg PO DAILY #90 tabs 03/18/24 01/12/25 01/13/25 Rx conj estrogen-medroxyprogesterone 1 tab PO DAILY #28 tabs 05/02/24 01/13/25 01/12/25 Rx 0.45 mg-1.5 mg tablet (Prempro) duloxetine 60 mg capsule,delayed 60 mg PO DAILY #90 caps 08/14/24 01/13/25 01/12/25 Rx release alendronate 10 mg tablet 10 mg PO DAILY #90 tabs 10/30/24 01/13/25 01/12/25 Rx duloxetine 30 mg capsule,delayed 30 mg PO DAILY #90 caps 10/30/24 01/13/25 01/12/25 Rx release omeprazole 20 mg capsule,delayed 20 mg PO DAILY #90 caps 10/30/24 01/13/25 01/12/25 Rx release buspirone 10 mg tablet 10 mg PO BID #60 tabs 10/31/24 01/12/25 01/13/25 Rx loratadine 10 mg tablet 10 mg PO DAILY 11/13/24 01/13/25 01/12/25 History potassium chloride 10 mEq 10 meq PO DAILY #90 caps 12/18/24 01/13/25 01/12/25 Rx capsule,extended release doxepin 25 mg capsule 25 mg PO .qpm PRN insomnia #30 caps 12/25/24 01/13/25 01/12/25 Rx tramadol 50 mg tablet 100 mg (2 x 50 mg) PO Q8H PRN pain 12/25/24 01/12/25 01/13/25 Rx 30 days #180 tabs Allergies Allergy/AdvReac Type Severity Reaction Status Date / Time Penicillins Allergy Mild ALGY-Hives Verified 01/12/25 08:44 PFS Anesthesia Medical History Pain management contract signed Encounter for chronic pain management chronic neck/headaches; Cervical spinal stenosis Other insomnia failed melatonin, temazepam, trazodone Neck pain Liver mass on CT--benign on MRI--cavernous hemangioma Tardive dyskinesia has been on olanzapine intermediate frame tender Weight loss, abnormal Hypokalemia Premature menopause on hormone replacement therapy was on Prempro0.3/1.5mg since hyst in her 20s; hot flashes still; Screening for lung cancer LDCT done 03.20.24 Nicotine dependence, cigarettes, in remission Allergic rhinitis due to allergen Arthritis of left sacroiliac joint Chronic bronchitis with COPD (chronic obstructive pulmonary disease) Obesity (BMI 30.0-34.9) Anxiety and depression Asthma due to environmental allergies Chronic low back pain now going to [facility] for injections; hx of spinal stimulator that has been removed Vitamin D deficiency Osteoporosis DEXA 07/2018--started fosamax Hyperlipidemia Fibromyalgia GERD (gastroesophageal reflux disease) Surgical History History of back surgery lumbar also, had spinal cord stimulator, then had it removed History of shoulder surgery left History of hysterectomy with BSO; done for endometriosis; no cancer History of neck surgery History of hand surgery bilateral carpal tunnel Family History Family/Other Diabetes Maternal aunt Mother Hypertension Father Hypertension Heart disease Denies family history of Clotting disorder Dementia Hyperlipidemia Chronic kidney disease (CKD) Anesthesia complication Bleeding disorder Lung disease Cancer Stroke Social History Smoking and tobacco/nicotine status: former use of tobacco/nicotine Quit status (tobacco/nicotine): has quit using Year quit tobacco: 2019 Former quit date comment: 1ppd Alcohol intake: current Alcohol intake frequency: holidays/special occasions only Substance/Drug Use: never Adopted: No Caregiver/support person: No Lives independently: Yes Household members: other Details: mother Marital status: Number of children: 2 Number of grandchildren: 1 Highest education level completed: 11th Grade service: No Current occupational status: disabled 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
--- NOTE | 2025-01-13 07:41 | W.PM.OPSFHP ---
Same Day Surgery H&P Indication for Procedure/HPI DATE OF PROCEDURE: January 13, 2025 CHIEF COMPLAINT/INDICATIONFOR SURGICAL PROCEDURE: screening colonoscopy PREOP DIAGNOSIS: screening colonoscopy PLANNED PROCEDURE: Operation Date: 01/13/25 08:00 Proposed Procedures p Colonoscopy [id number] G0121 Z12.11(Not Applicable) - Christopher Weller MD Medications/Allergies* Home Medications ?Medication ?Instructions ?Recorded ?Confirmed ?Type calcium carbonate 500 mg PO DAILY 02/16/21 01/13/25 History cholecalciferol (vitamin D3) 250 2,000 unit PO DAILY 09/19/23 01/13/25 History mcg (10,000 unit) capsule cyanocobalamin (vitamin B-12) 2,500 mcg PO DAILY 10/17/23 01/13/25 History 2,500 mcg chewable tablet ferrous sulfate 325 mg (65 mg 325 mg PO DAILY 10/17/23 01/13/25 History iron) tablet (FeroSul) vitamin E (dl, acetate) 180 mg 180 mg PO DAILY 10/17/23 01/13/25 History (400 unit) capsule loratadine 10 mg tablet 10 mg PO DAILY 11/13/24 01/13/25 History Allergies/Adverse Reactions Allergy/AdvReac Type Severity Reaction Status Date / Time Penicillins Allergy Mild ALGY-Hives Verified 01/12/25 08:44 Current Medications: Generic Name Dose Route Start Last Admin Trade Name Freq PRN Reason Stop Dose Admin Sodium Chloride 1,000 mls @ 15 mls/hr 01/13/25 06:42 01/13/25 07:11 Sodium Chloride 0.9% IV 01/14/25 06:41 15 mls/hr .Q24H PRN Administration COLONOSCOPY FLUIDS Pertinent History/Comorbid Conditions* Medical History (Updated 12/25/24 @ 08:54 by Dianne Lyon MD) Pain management contract signed Encounter for chronic pain management chronic neck/headaches; Cervical spinal stenosis Other insomnia failed melatonin, temazepam, trazodone Neck pain Liver mass on CT--benign on MRI--cavernous hemangioma Tardive dyskinesia 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 on olanzapine 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 Weight loss, abnormal Hypokalemia Premature menopause on hormone replacement therapy was on Prempro0.3/1.5mg since hyst in her 20s; hot flashes still; Screening for lung cancer LDCT done 1.9.25 Nicotine dependence, cigarettes, in remission Allergic rhinitis due to allergen Arthritis of left sacroiliac joint Chronic bronchitis with COPD (chronic obstructive pulmonary disease) Obesity (BMI 30.0-34.9) Anxiety and depression Asthma due to environmental allergies Chronic low back pain now going to [facility] for injections; hx of spinal stimulator that has been removed Vitamin D deficiency Osteoporosis DEXA 07/2018--started fosamax Hyperlipidemia Fibromyalgia GERD (gastroesophageal reflux disease) Surgical History (Updated 03/10/24 @ 14:15 by Dianne Lyon MD) History of back surgery lumbar also, had spinal cord stimulator, then had it removed History of shoulder surgery left History of hysterectomy with BSO; done for endometriosis; no cancer History of neck surgery History of hand surgery bilateral carpal tunnel Family History (Updated 10/16/24 @ 14:32 by Dianne Lyon MD) Diabetes Family/Other Maternal aunt Heart disease Father Hypertension Mother Father Denies family history of Clotting disorder Dementia Hyperlipidemia Chronic kidney disease (CKD) Anesthesia complication Bleeding disorder Lung disease Cancer Stroke Social History Smoking and tobacco/nicotine status: former use of tobacco/nicotine Quit status (tobacco/nicotine): has quit using Year quit tobacco: 2019 Former quit date comment: 1ppd Alcohol intake: current Alcohol intake frequency: holidays/special occasions only Substance/Drug Use: never Adopted: No Caregiver/support person: No Lives independently: Yes Household members: other Details: mother Marital status: Number of children: 2 Number of grandchildren: 1 Highest education level completed: 11th Grade service: No Current occupational status: disabled 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
[2025-01-13 08:25] VITALS: BP 110/66; PULSE 85; RESP 18; TEMP 36.1; O2SAT 96
[2025-01-13 08:40] VITALS: BP 110/72; PULSE 78; RESP 16; O2SAT 97
--- NOTE | 2025-01-13 09:05 | ANE.PACU2 ---
Inpatient post-anesthesia follow up: Airway intact: Yes Vital signs: Temperature 97 F Pulse Rate 78 Respiratory Rate 16 Blood Pressure 110/72 Pulse Oximetry 97 Oxygen Delivery Me thod Room Air Oxygen Flow Rate Fraction of Inspir ed Oxygen Hydration adequate: Yes Nausea and vomiting: No Pain level: 1 Mental status: Baseline
== END 2025-01-13 09:05 | disposition home or self-care (01) ==
PROVIDERS: PCP Family Medicine; Visit Provider Student in an Organized Health Care Education/Training Program
PROC: 0DJD8ZZ Inspection of Lower Intestinal Tract, Via Natural or Artificial Opening Endoscopic (ICD-10-PCS; CPT 45378; principal; 2025-01-13 08:00)
DX: Z12.11 Encounter for screening for malignant neoplasm of colon (principal); D12.0 Benign neoplasm of cecum; E66.9 Obesity, unspecified; Z68.24 Body mass index [BMI] 24.0-24.9, adult; E78.5 Hyperlipidemia, unspecified; M79.7 Fibromyalgia; J44.9 Chronic obstructive pulmonary disease, unspecified; Z87.891 Personal history of nicotine dependence; F41.8 Other specified anxiety disorders
CPT/HCPCS: 45385; 88305; J2704; J7030

== ENCOUNTER → 2025-01-21 13:54 | Outpatient (BNVA) | payer OTHER, MEDICAID, SELFPAY | PROVIDERS: PCP Family Medicine; Visit Provider Anesthesiology Pain Medicine | DX: M47.816 Spondylosis without myelopathy or radiculopathy, lumbar region (principal) | CPT/HCPCS: 64493; 64494; 64495; J3490; J9999 ==

== ENCOUNTER → 2025-01-26 13:04 | Outpatient (BNVA) | payer OTHER, MEDICAID, SELFPAY | PROVIDERS: PCP Family Medicine; Visit Provider Student in an Organized Health Care Education/Training Program | DX: Z09 Encounter for follow-up examination after completed treatment for conditions other than malignant neoplasm (principal) | CPT/HCPCS: 99213 ==

== ENCOUNTER 2025-02-09 06:30 | Outpatient (RCR) | payer MEDICARE, MEDICAID, SELFPAY | END 2025-02-10 08:47 | disposition home or self-care (01) | LOC: SPT 06:30 | PROVIDERS: PCP Family Medicine; Visit Provider Family Medicine | DX: R26.89 Other abnormalities of gait and mobility (principal); R26.81 Unsteadiness on feet | CPT/HCPCS: 97110; 97530 ==

== ENCOUNTER → 2025-02-10 09:33 | Outpatient (BNVA) | payer MEDICARE, MEDICAID, SELFPAY | PROVIDERS: PCP Family Medicine; Visit Provider Anesthesiology Pain Medicine | DX: M47.816 Spondylosis without myelopathy or radiculopathy, lumbar region (principal); M54.2 Cervicalgia; G89.29 Other chronic pain | CPT/HCPCS: 99214 ==

== ENCOUNTER 2025-02-23 10:21 | Outpatient (RCR) | payer MEDICARE, MEDICAID, SELFPAY | END 2025-03-11 23:59 | disposition home or self-care (01) | LOC: SPT 10:21 | PROVIDERS: PCP Family Medicine; Visit Provider Anesthesiology Pain Medicine | DX: M54.2 Cervicalgia (principal); G89.29 Other chronic pain | CPT/HCPCS: 97110; 97161; 97530 ==